=== PATIENT | male | born 1990 | race Caucasian/White ===

== ENCOUNTER 2022-06-20 15:48 | Inpatient (IN) | payer MEDICAID ==
[~2022-06-20] VITALS: Ht 170.2 cm; Wt 86.2 kg
--- NOTE | 2022-06-20 16:30 | NUR ---
BIB [facility] SACRAL WOUND EVAL SO HE CAN GET DIALYSIS C/O PAIN DURING DIALYSIS
--- NOTE | 2022-06-20 17:30 | NUR ---
calix catheter present
[2022-06-20 17:44] LABS: BASOPHILS % (AUTO) 0.3 % (0.0-2.0); EOSINOPHILS % (AUTO) 0.3 % (0.0-6.0); HEMATOCRIT 34 % (39-51); HEMOGLOBIN 10.4 g/dL (13.5-17.5); LYMPHOCYTES # (AUTO) 3.4 K/uL (0.8-4.8); LYMPHOCYTES % (AUTO) 26.8 % (20.0-44.0); MEAN CORPUSCULAR HGB CONC 30 g/dl (31.0-36.0); MEAN CORPUSCULAR VOLUME 88 fL (80-96); MONOCYTES # (AUTO) 0.3 K/uL (0.1-1.30); MONOCYTES % (AUTO) 2.5 % (2.0-12.0); NEUTROPHILS % (AUTO) 70.1 % (43.0-81.0); PLATELET COUNT (AUTO) 402 K/uL (150-450); RED BLOOD CELL COUNT(AUTO) 3.91 MIL/uL (4.5-6.0); WHITE BLOOD COUNT (AUTO) 12.9 K/uL (4.3-11.0)
--- NOTE | 2022-06-20 18:04 | NUR ---
admit - decubitus ulcer , med surg
--- NOTE | 2022-06-20 18:10 | NUR ---
covid swab taken sent to lab
--- NOTE | 2022-06-20 18:10 | NUR ---
urine sample obtained sent to lab
[2022-06-20 18:11] LABS: CALCIUM, SERUM 8.8 mg/dL (8.5-10.1); CARBON DIOXIDE 23 mmol/L (21-32); CHLORIDE 103 mmol/L (98-107); GLUCOSE 75 mg/dL (74-106); POTASSIUM 3.6 mmol/L (3.5-5.1); SODIUM SERUM 135 mmol/L (136-145); UREA NITROGEN, BLOOD 34 mg/dL (7-18)
--- NOTE | 2022-06-20 18:16 | NUR ---
called for midline nurse
[2022-06-20 18:17] LABS: ALANINE AMINOTRANSFERASE < 6 U/L (12-78); ALKALINE PHOSPHATASE 137 U/L (46-116); ASPARTATE AMINOTRANSFERASE 11 U/L (15-37); BILIRUBIN,DIRECT 0.1 mg/dL (0.0-0.2); BILIRUBIN,TOTAL 0.4 mg/dL (0.2-1.0); TOTAL PROTEIN, SERUM 7.5 g/dL (6.4-8.2)
[2022-06-20 18:28] LABS: ALBUMIN 1.4 g/dL (3.4-5.0)
[2022-06-20] MEDS ORDERED: PIPERACILLIN /TAZOBACTAM 3.375 G in IV D5W 50 ML IV ONE (18:30)
[2022-06-20] MEDS ORDERED: VANCOMYCIN 1 GM in IV D5W 250 ML IV ONE (18:30)
[2022-06-20] MEDS ORDERED: ASPI-1169 PO (18:39)
[2022-06-20] MEDS ORDERED: TRAM50TA2 PO (18:39)
[2022-06-20] MEDS ORDERED: INSU100V39 SQ (18:39)
[2022-06-20] MEDS ORDERED: POLY15DR40 EACHEYE (18:39)
[2022-06-20] MEDS ORDERED: CARV25TA2 PO (18:39)
[2022-06-20] MEDS ORDERED: CLON0.1T PO (18:39)
[2022-06-20] MEDS ORDERED: FERR325T23 PO (18:39)
[2022-06-20] MEDS ORDERED: EMTR1TAB17 PO (18:39)
[2022-06-20] MEDS ORDERED: MORP15TA10 PO (18:39)
[2022-06-20] MEDS ORDERED: DOLU50TA PO (18:39)
[2022-06-20] MEDS ORDERED: BISA10SU11 RC (18:39)
[2022-06-20] MEDS ORDERED: GABA-532 PO (18:39)
[2022-06-20] MEDS ORDERED: LORA-258 PO ×2 (18:39)
[2022-06-20] MEDS ORDERED: OXYC5TAB3 PO (18:39)
[2022-06-20] MEDS ORDERED: VENL150C58 PO (18:39)
[2022-06-20] MEDS ORDERED: FOLI0.8T2 PO (18:39)
[2022-06-20] MEDS ORDERED: SENN-261 PO (18:39)
[2022-06-20] MEDS ORDERED: CRAN425C6 PO (18:39)
[2022-06-20] MEDS ORDERED: ZOLP5TAB8 PO (18:39)
[2022-06-20] MEDS ORDERED: MIRT45TA83 PO (18:39)
[2022-06-20] MEDS ORDERED: COLL30OI TP (18:39)
[2022-06-20] MEDS ORDERED: NIFE90TA2 PO (18:39)
[2022-06-20] MEDS ORDERED: INSU100V7 SQ (18:39)
[2022-06-20] MEDS ORDERED: MAGN400O6 PO (18:39)
[2022-06-20] MEDS ORDERED: AMIN30LI2 PO (18:39)
[2022-06-20] MEDS ORDERED: CYCL5TAB PO (18:39)
[2022-06-20] MEDS ORDERED: OMEP20CA15 PO (18:39)
[2022-06-20] MEDS ORDERED: LOSA100T31 PO (18:39)
[2022-06-20] MEDS ORDERED: TEST200V3 IM (18:39)
[2022-06-20] MEDS ORDERED: NALO4SPR (18:39)
[2022-06-20] MEDS ORDERED: EPOE1VIA6 SQ (18:39)
[2022-06-20] MEDS ORDERED: DOCU250C14 PO (18:39)
[2022-06-20] MEDS ORDERED: HONE15GE TP (18:39)
[2022-06-20] MEDS ORDERED: BUPR-54 PO (18:39)
[2022-06-20] MEDS ORDERED: ACET-868 PO (18:39)
[2022-06-20] MEDS ORDERED: APIX5TAB PO (18:39)
[2022-06-20] MEDS ORDERED: POLY17PO4 PO (18:39)
[2022-06-20] MEDS ORDERED: ONDA4TAB5 PO (18:39)
[2022-06-20] MEDS ORDERED: HYDR50TA61 PO (18:39)
--- NOTE | 2022-06-20 19:10 | NUR ---
PANEL ON-CALL PAGED
[2022-06-20 19:12] LABS: BILIRUBIN,URINE 1+ (NEGATIVE); COLOR,URINE YELLOW (YELLOW); LEUKOCYTE ESTERASE ,URINE 3+ (NEGATIVE); NITRITE, URINE NEGATIVE (NEGATIVE); PH,URINE 8.5 (5.0-8.0); PROTEIN,URINE 3+ mg/dl (NEGATIVE); UGLUCOSE NEGATIVE (NEGATIVE); UROBILINOGEN,URINE 0.2 EU/dL (0.2)
[2022-06-20 19:39] LABS: BACTERIA,URINE Many /HPF (None Seen); SQUAMOUS EPITHELIAL CELL,UR Few /HPF (None Seen); WBC,URINE TOO NUMEROUS TO COUN /HPF (0-3)
[2022-06-20 19:41] LABS: TRIPLE PHOSPHATE CRYSTAL,UR Few /HPF (None Seen)
[2022-06-20] MEDS ORDERED: IV NS 0.9% 500 ML BAG IV ONE (20:00)
[2022-06-20] MEDS ORDERED: hydrALAZINE HCL IV 20 MG VIAL IV ONE (20:00)
[2022-06-20] MEDS ORDERED: PIPERACILLIN /TAZOBACTAM 3.375 G VIAL IV ONE (21:47)
[2022-06-20] MEDS ORDERED: VANCOMYCIN 1 GM VIAL ONE (22:05)
[2022-06-20] MEDS ORDERED: hydrALAZINE HCL IV 20 MG VIAL ONE (22:05)
--- NOTE | 2022-06-20 22:11 | NUR ---
PATIENT WITH MIDLINE ON RIGHT UPPER ARM G20
[2022-06-20] MEDS ORDERED: BISACODYL SUPP (10 MG) 10 MG/SUPP.RECT SUPP.RECT RC PRN (22:30)
[2022-06-20] MEDS ORDERED: Z GUARD REMEDY 4 OZ OINT TP PRN (22:30)
[2022-06-20] MEDS ORDERED: MAGNESIUM HYDROXIDE 30 ML UDC PO PRN (22:30)
[2022-06-20] MEDS ORDERED: ONDANSETRON HCL/PF 4 MG/2 ML VIAL IVP PRN (22:30)
[2022-06-20] MEDS ORDERED: ZOLPIDEM TARTRATE 5 MG TABLET PO PRN (22:30)
[2022-06-20] MEDS ORDERED: TRAMADOL HCL 50 MG TABLET PO PRN (22:30)
[2022-06-20] MEDS ORDERED: CLONIDINE HCL 0.1 MG TABLET PO PRN (22:30)
[2022-06-20] MEDS ORDERED: NALOXONE HCL 4 MG SPRAY NS PRN (22:30)
--- NOTE | 2022-06-20 23:48 | NUR ---
BP 210/154mmHg, Catapres PO given
[2022-06-21] MEDS ORDERED: hydrALAZINE HCL IV 20 MG VIAL ONE (00:22)
[2022-06-21] MEDS ORDERED: LORAZEPAM 0.5 MG TABLET ONE (00:24)
[2022-06-21] MEDS ORDERED: POLYVINYL ALCOHOL 15 ML BOTTLE EACHEYE PRN (00:30)
[2022-06-21] MEDS ORDERED: hydrALAZINE HCL IV 20 MG VIAL IV PRN (00:30)
--- NOTE | 2022-06-21 00:30 | NUR ---
BP 207/126mmHg, Apresoline 10mg iv push given
[2022-06-21] MEDS: LORAZEPAM 0.5 MG TABLET PO PRN (00:31)
--- NOTE | 2022-06-21 00:31 | NUR ---
JOEL VU MADE AWARE THAT BP IS ON THE HIGH SIDE EVEN MEDS GIVEN. HE WILL ORDER ADDITIONAL MEDICINE TO LOWER BP
--- NOTE | 2022-06-21 01:50 | NUR ---
REPORT GIVEN TO LIANG MCKEON
--- NOTE | 2022-06-21 02:05 | NUR ---
PATIENT TRANSFERRED TO ROOM VIA BED.
--- NOTE | 2022-06-21 02:10 | NUR ---
ADMISSION NOTES PT ARRIVED VIA GURNEY WITH EMT @ 0210 TRANSFERRED TO BED.AOx4, ABLE TO MAKE NEEDS KNOWN. ON RA AND TOLERATING WELL. NO SOB NOTED. NO S/SX OF RESPIRATORY DISTRESS NOTED. IV ACCESS IN REYES MIDLINE #18G. IV IS INTACT, PATENT, AND FLUSHING WELL. WOUND PICTURES TAKEN. WOUND CARE CONSULT ORDERED. BASIC WOUND CARE DONE. SAFETY PRECAUTIONS IN PLACE: BED IN LOWEST, LOCKED POSITION, SIDERAILS UPx2, AND BRAKES ON. TABLE AND CALL LIGHT WITHIN REACH. ALL NEEDS MET AT THIS TIME.
--- NOTE | 2022-06-21 06:50 | NUR ---
RN CLOSING NOTES PT IN BED, AWAKE. AOx4, ABLE TO MAKE NEEDS KNOWN. ON RA AND TOLERATING WELL. NO SOB NOTED. NO S/SX OF RESPIRATORY DISTRESS NOTED. IV ACCESS IN REYES MIDLINE #18G. IV IS INTACT, PATENT, AND FLUSHING WELL. WOUND PICTURES TAKEN. WOUND CARE CONSULT ORDERED. BASIC WOUND CARE DONE. ALL ORDERS CARRIED OUT. ALL NEEDS MET. PT KEPT CLEAN AND DRY. SAFETY PRECAUTIONS IN PLACE: BED IN LOWEST, LOCKED POSITION, SIDERAILS UPx2, AND BRAKES ON. TABLE AND CALL LIGHT WITHIN REACH. WILL ENDORSE TO ONCOMING SHIFT FOR BRYN.
--- NOTE | 2022-06-21 07:00 | NUR ---
MS RN OPENING NOTES RECEIVED PATIENT SLEEPING IN BED, A/Ox4, ABLE TO VERBALIZE NEEDS. BLIND, SAFETY MEASURES IN PLACE. ON ROOM AIR NO S/S OF SOB OR RESPIRATORY DISTRESS. PATIENT SHOWS NO S/S OF DISCOMFORT OR PAIN. IV ACCES REYES MIDLINE #18 S/L. INTACT AND PATENT. PATIENT HAS RCW HD CATHETER, DRESSING IN PLACE. PATIENT HAD FC DRAINING CLOUDY URINE AT THIS TIME. SKIN ISSUES: SACRAL WOUND AND BILATERAL HEEL DTI. SAFETY MEASURES IN PLACE: BED LOCKED AND IN LOWEST POSITION, HOB ELEVATED, SIDE RAILS UP x3, BED ALARM ON, CALL LIGHT WITHIN REACH. WILL CONTINUE TO MONITOR.
[2022-06-21 07:14] LABS: BASOPHILS % (AUTO) 0.1 % (0.0-2.0); EOSINOPHILS % (AUTO) 0.2 % (0.0-6.0); HEMATOCRIT 29 % (39-51); HEMOGLOBIN 8.9 g/dL (13.5-17.5); LYMPHOCYTES # (AUTO) 2.6 K/uL (0.8-4.8); LYMPHOCYTES % (AUTO) 16.2 % (20.0-44.0); MEAN CORPUSCULAR HGB CONC 31 g/dl (31.0-36.0); MEAN CORPUSCULAR VOLUME 86 fL (80-96); MONOCYTES # (AUTO) 0.5 K/uL (0.1-1.30); MONOCYTES % (AUTO) 3.4 % (2.0-12.0); NEUTROPHILS # (AUTO) 12.6 K/uL (1.8-8.9); NEUTROPHILS % (AUTO) 80.1 % (43.0-81.0); PLATELET COUNT (AUTO) 298 K/uL (150-450); RED BLOOD CELL COUNT(AUTO) 3.37 MIL/uL (4.5-6.0); WHITE BLOOD COUNT (AUTO) 15.8 K/uL (4.3-11.0)
[2022-06-21] MEDS ORDERED: OMEPRAZOLE 20 MG CAPSULE.DR PO SCH (07:30)
[2022-06-21 08:00] VITALS: BP 160/100
[2022-06-21] MEDS ORDERED: NALOXONE HCL 4 MG SPRAY NS PRN (08:00)
[2022-06-21] MEDS ORDERED: PIPERACILLIN /TAZOBACTAM 2.25 G in IV D5W 50 ML IV SCH (08:00)
[2022-06-21] MEDS ORDERED: VANCOMYCIN 500 MG in IV D5W 100 ML IV PRN (08:00)
[2022-06-21 08:07] LABS: CALCIUM, SERUM 7.9 mg/dL (8.5-10.1); CREATININE 4.7 mg/dL (0.6-1.3); PHOSPHORUS 4.2 mg/dL (2.5-4.9); POTASSIUM 3.6 mmol/L (3.5-5.1)
[2022-06-21] MEDS: LOSARTAN POTASSIUM 50 MG TABLET PO SCH (08:29)
[2022-06-21] MEDS: VIT B CMPLX 3/FA/VIT C/BIOTIN 1 TAB TABLET PO SCH (08:30)
[2022-06-21] MEDS: ASPIRIN 81 MG TAB.CHEW PO SCH (08:30)
[2022-06-21] MEDS: NIFEdipine XL (30MG) 30 MG TAB PO SCH (08:30)
[2022-06-21] MEDS: BUPROPION XL 150 MG TAB.ER.24 PO SCH (08:30)
[2022-06-21] MEDS: FERROUS SULFATE (325 MG) 325 MG/TAB TABLET PO SCH ×3 (08:30→16:49)
[2022-06-21] MEDS: PANTOPRAZOLE 40 MG TABLET.DR PO SCH (08:30)
[2022-06-21] MEDS: DOCUSATE SODIUM 250 MG CAPSULE PO SCH (08:30)
[2022-06-21] MEDS: SENNOSIDES 8.6 MG TABLET PO SCH ×3 (08:30→16:55)
[2022-06-21] MEDS: CARVEDILOL 12.5 MG TABLET PO SCH ×3 (08:30→21:09)
[2022-06-21] MEDS: APIXABAN 5 MG TABLET PO SCH ×2 (08:32→16:51)
[2022-06-21] MEDS: POLYETHYLENE GLYCOL 3350 17 GM POWD.PACK PO SCH (08:40)
--- NOTE | 2022-06-21 08:47 | NUR ---
WOUND CARE CONSULT: PT REFUSING SKIN ASSESSMENT AT THIS TIME. 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 DR JOSELITO WALSH AND DR RUSSELL CALLED FOR SURGICAL AND DPM CONSULTS. RECOMMENDATIONS MADE FOR SKIN PROTECTION AND SACRAL WOUND CARE. DISCUSSED WITH NURSING STAFF. PT IS ON [facility] LOW AIRLOSS BED. MD IN AGREEMENT WITH PLAN OF CARE.
[2022-06-21] MEDS ORDERED: CRANBERRY EXT/C/L. SPOROGENES 405 MG/TAB TABLET PO SCH ×2 (09:00)
[2022-06-21] MEDS: PIPERACILLIN /TAZOBACTAM 2.25 G in IV D5W 50 ML IV SCH ×3 (10:16→20:48)
[2022-06-21] MEDS: VENLAFAXINE XR 150 MG CAP.SR.24H PO SCH (10:21)
[2022-06-21] MEDS: DAKINS QUARTER STRENGTH (0.125%) 480 ML BOTTLE TOP SCH (11:34)
--- NOTE | 2022-06-21 12:00 | NUR ---
SS note: TAYLOR was notified that pt. requires medication from [facility] [[id number] [id number]; TEL: [phone]] to be brought to pt. as our pharmacy bejarano not carry that medication. Per facility stated they could not bring it to [facility]. TAYLOR called the pt.'s person to notify, Wes [phone] who stated they are the pt.'s godfather and all of the pt.'s family and friends reside in [facility] so no one is able to assist with bringing pt.'s medication to [facility] from facility. TAYLOR met with pt. who also stated he has no friends in [place] to assist. TAYLOR called [facility] pharmacy and they sent a dermatological surgeon to [facility] [[id number] [id number]; TEL: [phone]]. TAYLOR spoke to Niki Archuleta at [facility] [[id number] [id number]; TEL: [phone]] who stated thy would provide dermatological surgeon with pt.'s medication. SW will be available as needed. TAYLOR notified CRN from .
[2022-06-21] MEDS ORDERED: NEPRO VAN 237 ML CAN PO PRN (15:00)
[2022-06-21] MEDS: TENOFOV ALAFENAM PO SCH (16:51)
[2022-06-21] MEDS: DOLUTEGRAVIR SODIUM 50 MG PO SCH (16:51)
[2022-06-21] MEDS: EMTRICITABINE PO SCH (16:51)
--- NOTE | 2022-06-21 18:46 | NUR ---
MS RN CLOSING NOTES PATIENT SLEEPING IN BED, A/Ox4, ABLE TO VERBALIZE NEEDS. BLIND, SAFETY MEASURES IN PLACE. STABLE ON ROOM AIR NO S/S OF SOB OR RESPIRATORY DISTRESS. PATIENT SHOWS NO S/S OF DISCOMFORT OR PAIN. IV ACCES REYES MIDLINE #18 S/L. INTACT AND PATENT. PATIENT HAS RCW HD CATHETER, DRESSING IN PLACE. PATIENT HAD FC DRAINING CLOUDY URINE AT THIS TIME. SKIN ISSUES: SACRAL WOUND AND BILATERAL HEEL DTI. ALL PRESCRIBED MEDICATION ADMINISTERED. SAFETY MEASURES MAINTAINED: BED LOCKED AND IN LOWEST POSITION, HOB ELEVATED, SIDE RAILS UP x3, BED ALARM ON, CALL LIGHT WITHIN REACH. WILL ENDORSE TO NEXT SHIFT ANY BRYN.
--- NOTE | 2022-06-21 19:15 | NUR ---
MS RN NOTES RECEIVED ON BED SLEEPING,BREATHING REGULAR,NOT IN ANY FORM OF DISTRESS.LEGALLY BLIND,SHINE CATH IN PLACE,NO OUTPUT AT THE MOMENT.WITH RIGHT CHEST WALL CATHETER FOR HD ACCESS.RIGHT UPPER ARM MIDLINE FOR MEDS.SACRAL WOUND WITH DRESSING INTACT AND DRY.CALL LIGHT IN REACH,NEEDS ANTICIPATED.
[2022-06-21 20:00] VITALS: BP 107/59
[2022-06-21] MEDS: GABAPENTIN 300 MG CAPSULE PO SCH ×2 (21:09→21:18)
[2022-06-21] MEDS: MIRTAZAPINE 45 MG TABLET PO SCH ×2 (21:12→21:18)
[2022-06-21] MEDS: INSULIN GLARGINE, 100 UNIT/ML CARTRIDGE SQ SCH (21:29)
--- NOTE | 2022-06-21 21:30 | NUR ---
MS RN NOTES PATIENT REFUSED NIGHT MEDICATIONS,COREG,NEURONTIN,REMERON,WASTED. BLOOD SUGAR CHECK REFUSED WELL,LANTUS 5 UNITS SCHEDULED NOT GIVEN,REFUSED.
--- NOTE | 2022-06-22 02:00 | NUR ---
MS RN NOTES OFFERED TO BE REPOSITIONED BUT REFUSED.
[2022-06-22] MEDS: PIPERACILLIN /TAZOBACTAM 2.25 G in IV D5W 50 ML IV SCH ×3 (04:44→22:09)
--- NOTE | 2022-06-22 05:00 | NUR ---
MS RN NOTES AWAKE,OFFERED MORNING CARE,DRESSING CHANGE TO WOUND BUT REFUSED.EXPLAINED RISK AND BENEFITS BUT STILLL REFUSED.
[2022-06-22] MEDS: ACETAMINOPHEN 325 MG TABLET PO PRN ×2 (05:04→15:04)
--- NOTE | 2022-06-22 05:09 | NUR ---
MS RN NOTES C/O MILD PAIN ON SACRAL AREA,TYLENOL 650MG PO GIVEN PER PATIENT REQUEST.
[2022-06-22 05:50] LABS: BASOPHILS % (AUTO) 0.1 % (0.0-2.0); EOSINOPHILS % (AUTO) 0.4 % (0.0-6.0); HEMATOCRIT 25 % (39-51); HEMOGLOBIN 7.6 g/dL (13.5-17.5); LYMPHOCYTES # (AUTO) 2.6 K/uL (0.8-4.8); LYMPHOCYTES % (AUTO) 16.2 % (20.0-44.0); MEAN CORPUSCULAR HGB CONC 31 g/dl (31.0-36.0); MEAN CORPUSCULAR VOLUME 86 fL (80-96); MONOCYTES # (AUTO) 0.6 K/uL (0.1-1.30); MONOCYTES % (AUTO) 3.7 % (2.0-12.0); NEUTROPHILS # (AUTO) 12.7 K/uL (1.8-8.9); NEUTROPHILS % (AUTO) 79.6 % (43.0-81.0); PLATELET COUNT (AUTO) 260 K/uL (150-450); RED BLOOD CELL COUNT(AUTO) 2.86 MIL/uL (4.5-6.0)
--- NOTE | 2022-06-22 06:27 | NUR ---
MS RN NOTES OFFERED SEVERAL TIMES MORNING CARE,STILL REFUSED,PAIN IMPROVED WITH TYLENOL.REFUSED ALL PO MEDS LAST NIGHT.IN NO ACUTE DISTRESS.WILL ENDORSE TO DAY NURSE FOR BRYN.
[2022-06-22 06:31] LABS: CALCIUM, SERUM 7.9 mg/dL (8.5-10.1); CREATININE 5.2 mg/dL (0.6-1.3); PHOSPHORUS 4.2 mg/dL (2.5-4.9); POTASSIUM 3.4 mmol/L (3.5-5.1)
[2022-06-22] MEDS ORDERED: EPOETIN ALFA-EPBX 10,000 UNIT/ML VIAL SQ SCH ×2 (06:57→15:00)
[2022-06-22 07:00] VITALS: BP 129/76
[2022-06-22] MEDS: PANTOPRAZOLE 40 MG TABLET.DR PO SCH ×2 (07:30→09:49)
--- NOTE | 2022-06-22 07:30 | NUR ---
MS RN OPENING NOTES RECEIVED PATIENT ON BED RESTING AND A/O X4. ON ROOM AIR TOLERATING WELL. NO SOB NOTED. NOT IN DISTRESS. WITH NO COMPLAINTS OF PAIN AT THIS TIME. WITH IV ACCESS AT THE RIGHT UPPER ARM MIDLINE SALINE LOCKED, PATENT AND INTACT. WITH HD CATHETER AT THE RIGHT CHEST WALL WITH CLEAN AND DRY DRESSING. WITH SHINE CATHETER IN PLACED WITH AT LEAST 10ML OF TEA COLORED URINE. SAFETY MEASURES IN PLACED. CALL LIGHT WITHIN REACH. BED ON LOWEST LOCKED POSITION, SIDE RAILS UP X2. WILL CONTINUE TO MONITOR.
[2022-06-22] MEDS: VIT B CMPLX 3/FA/VIT C/BIOTIN 1 TAB TABLET PO SCH ×2 (09:00→09:49)
[2022-06-22] MEDS: APIXABAN 5 MG TABLET PO SCH ×3 (09:00→17:00)
[2022-06-22] MEDS: EMTRICITABINE PO SCH ×2 (09:00→09:45)
[2022-06-22] MEDS: POLYETHYLENE GLYCOL 3350 17 GM POWD.PACK PO SCH (09:00)
[2022-06-22] MEDS: LOSARTAN POTASSIUM 50 MG TABLET PO SCH (09:00)
[2022-06-22] MEDS: BUPROPION XL 150 MG TAB.ER.24 PO SCH ×2 (09:00→09:48)
[2022-06-22] MEDS: TENOFOV ALAFENAM PO SCH ×2 (09:00→09:45)
[2022-06-22] MEDS: ASPIRIN 81 MG TAB.CHEW PO SCH ×2 (09:00→09:46)
[2022-06-22] MEDS: DOLUTEGRAVIR SODIUM 50 MG PO SCH ×2 (09:00→09:45)
[2022-06-22] MEDS: NIFEdipine XL (30MG) 30 MG TAB PO SCH (09:00)
[2022-06-22] MEDS: FERROUS SULFATE (325 MG) 325 MG/TAB TABLET PO SCH ×4 (09:00→17:00)
[2022-06-22] MEDS: CARVEDILOL 12.5 MG TABLET PO SCH ×2 (09:00→21:00)
[2022-06-22] MEDS: SENNOSIDES 8.6 MG TABLET PO SCH ×4 (09:00→17:00)
[2022-06-22] MEDS: DOCUSATE SODIUM 250 MG CAPSULE PO SCH (09:00)
[2022-06-22] MEDS: VENLAFAXINE XR 150 MG CAP.SR.24H PO SCH ×2 (09:00→09:45)
--- NOTE | 2022-06-22 09:20 | NUR ---
RN NOTES PATIENT REFUSED TO EAT AND TO TAKE ALL HIS PO MEDICATIONS.
[2022-06-22] MEDS: POTASSIUM CHLORIDE 20 MEQ TAB.PRT.SR PO ONE ×2 (09:51→10:26)
[2022-06-22] MEDS: DAKINS QUARTER STRENGTH (0.125%) 480 ML BOTTLE TOP SCH (09:52)
--- NOTE | 2022-06-22 10:00 | NUR ---
RN NOTE PATIENT REFUSED FOR CT ABDOMEN AND PELVIS WITH OR WITHOUT CONTRAST.
[2022-06-22] MEDS: LORAZEPAM 0.5 MG TABLET PO PRN ×2 (14:20→15:03)
[2022-06-22] MEDS: EPOETIN ALFA-EPBX 10,000 UNIT/ML VIAL SQ SCH (15:43)
--- NOTE | 2022-06-22 17:00 | NUR ---
RN NOTE PT REFUSED TO TAKE AGAIN HIS PO MEDS.
--- NOTE | 2022-06-22 17:41 | NUR ---
RN NOTE PT REFUSED TO BE CLEANED AND REFUSED CHANGING OF LINENS WELL STATING "I'M FINE. LEAVE ME ALONE. I HAVEN'T GONE YET."
--- NOTE | 2022-06-22 18:38 | NUR ---
MS RN CLOSING NOTES PATIENT ON BED RESTING AND A/O X4. NON-COMPLIANT WITH PO MEDS. ON ROOM AIR TOLERATING WELL. NO SOB NOTED. NOT IN DISTRESS. WITH NO COMPLAINTS OF PAIN AT THIS TIME. WITH IV ACCESS AT THE RIGHT UPPER ARM MIDLINE SALINE LOCKED, PATENT AND INTACT. WITH HD CATHETER AT THE RIGHT CHEST WALL WITH CLEAN AND DRY DRESSING. S/P HEMODIALYSIS WITH 2L OF FLUID REMOVED. WITH SHINE CATHETER IN PLACED WITH AT LEAST 20ML OF TEA COLORED URINE. SAFETY MEASURES IN PLACED. CALL LIGHT WITHIN REACH. BED ON LOWEST LOCKED POSITION, SIDE RAILS UP X2. WILL ENDORSE TO NEXT SHIFT FOR BRYN.
--- NOTE | 2022-06-22 19:30 | NUR ---
MS RN NOTES RECEIVED LAYING ON BED,A/O X4,LEGALLY BLIND,BREATHING NON LABORED,IV ABX INFUSING WELL ON RIGHT UPPER ARM MIDLINE.WITH SHINE CATH IN PLACE ,NO OUTPUT AT THE MOMENT,WITH HD TREATMENT TODAY,2 LITERS OUT.SACRAL WOUND DRESSING INTACT AND DRY.WITH BLE DTI. WITH RIGHT CHEST WALL CATH FOR HD TREATMENT,REYES MIDLINE FOR MEDS.CALL LIGHT IN REACH,NEEDS ANTICIPATED.
--- NOTE | 2022-06-22 20:00 | NUR ---
MS RN NOTES REFUSED VITAL SIGNS THIS TIME.
[2022-06-22] MEDS: MIRTAZAPINE 45 MG TABLET PO SCH (22:00)
[2022-06-22] MEDS: GABAPENTIN 300 MG CAPSULE PO SCH (22:00)
[2022-06-22] MEDS: INSULIN GLARGINE, 100 UNIT/ML CARTRIDGE SQ SCH (22:00)
--- NOTE | 2022-06-23 04:00 | NUR ---
MS RN NOTES ABLE TO DO MORNING CARE THIS TIME.FOUL ODOR INSIDE HIS ROOM.WITH HUGE BOWEL MOVEMENT NOTED AND PATIENT DOESNT WANT TO BE CLEAN.EXPLAINED RISK AND BENEFITS OF HAVING CLEAN AND HE GIVE IN.WOUND CARE RENDERED WITH DAKINS SOLUTION ON SACRAL AREA.BILATERAL HEEL COVERED WITH MEPILEX,ELEVATED ON PILLOWS.SPECIALTY MATTRESS APPLIED.REPOSITIONED.
[2022-06-23] MEDS: PIPERACILLIN /TAZOBACTAM 2.25 G in IV D5W 50 ML IV SCH ×3 (05:06→21:10)
--- NOTE | 2022-06-23 06:13 | NUR ---
MS RN NOTES ON BED CALM.SUCCESSFUL MORNING CARE DONE.FOR HD TODAY WITH ORDER.REPOSITION PER PROTOCOL.BILATERAL HEEL OFFLOAD TO BED.IN NO ACUTE DISTRESS.
[2022-06-23 07:00] VITALS: BP 178/100
--- NOTE | 2022-06-23 07:13 | NUR ---
MS RN NOTES REFUSED BLOOD DRAW THIS MORNING.
[2022-06-23] MEDS: PANTOPRAZOLE 40 MG TABLET.DR PO SCH (07:30)
--- NOTE | 2022-06-23 07:30 | NUR ---
MS RN OPENING NOTES RECEIVED PATIENT ON BED RESTING AND A/O X4. ON ROOM AIR TOLERATING WELL. NO SOB NOTED. NOT IN DISTRESS. WITH NO COMPLAINTS OF PAIN AT THIS TIME. WITH IV ACCESS AT THE RIGHT UPPER ARM MIDLINE SALINE LOCKED, PATENT AND INTACT. WITH HD CATHETER AT THE RIGHT CHEST WALL WITH CLEAN AND DRY DRESSING. WITH SHINE CATHETER IN PLACED. SAFETY MEASURES IN PLACED. CALL LIGHT WITHIN REACH. BED ON LOWEST LOCKED POSITION, SIDE RAILS UP X2. WILL CONTINUE TO MONITOR.
[2022-06-23] MEDS: TENOFOV ALAFENAM PO SCH (09:00)
[2022-06-23] MEDS: CARVEDILOL 12.5 MG TABLET PO SCH ×2 (09:00→22:10)
[2022-06-23] MEDS: VIT B CMPLX 3/FA/VIT C/BIOTIN 1 TAB TABLET PO SCH (09:00)
[2022-06-23] MEDS: POLYETHYLENE GLYCOL 3350 17 GM POWD.PACK PO SCH (09:00)
[2022-06-23] MEDS: FERROUS SULFATE (325 MG) 325 MG/TAB TABLET PO SCH ×3 (09:00→17:00)
[2022-06-23] MEDS: VENLAFAXINE XR 150 MG CAP.SR.24H PO SCH (09:00)
[2022-06-23] MEDS: DOCUSATE SODIUM 250 MG CAPSULE PO SCH (09:00)
[2022-06-23] MEDS: BUPROPION XL 150 MG TAB.ER.24 PO SCH (09:00)
[2022-06-23] MEDS: DOLUTEGRAVIR SODIUM 50 MG PO SCH (09:00)
[2022-06-23] MEDS: NIFEdipine XL (30MG) 30 MG TAB PO SCH (09:00)
[2022-06-23] MEDS: LOSARTAN POTASSIUM 50 MG TABLET PO SCH (09:00)
[2022-06-23] MEDS: SENNOSIDES 8.6 MG TABLET PO SCH ×3 (09:00→17:00)
[2022-06-23] MEDS: EMTRICITABINE PO SCH (09:00)
[2022-06-23] MEDS: ASPIRIN 81 MG TAB.CHEW PO SCH (09:00)
[2022-06-23] MEDS: APIXABAN 5 MG TABLET PO SCH ×2 (09:00→17:00)
[2022-06-23] MEDS: DAKINS QUARTER STRENGTH (0.125%) 480 ML BOTTLE TOP SCH (09:55)
[2022-06-23 14:23] LABS: BASOPHILS % (AUTO) 0.3 % (0.0-2.0); EOSINOPHILS % (AUTO) 0.3 % (0.0-6.0); HEMATOCRIT 29 % (39-51); HEMOGLOBIN 8.7 g/dL (13.5-17.5); LYMPHOCYTES # (AUTO) 2.6 K/uL (0.8-4.8); LYMPHOCYTES % (AUTO) 19.5 % (20.0-44.0); MEAN CORPUSCULAR HGB CONC 30 g/dl (31.0-36.0); MEAN CORPUSCULAR VOLUME 86 fL (80-96); MONOCYTES # (AUTO) 0.5 K/uL (0.1-1.30); MONOCYTES % (AUTO) 3.9 % (2.0-12.0); NEUTROPHILS # (AUTO) 10.3 K/uL (1.8-8.9); PLATELET COUNT (AUTO) 266 K/uL (150-450); RED BLOOD CELL COUNT(AUTO) 3.34 MIL/uL (4.5-6.0); WHITE BLOOD COUNT (AUTO) 13.6 K/uL (4.3-11.0)
[2022-06-23 15:05] LABS: CALCIUM, SERUM 7.4 mg/dL (8.5-10.1); CREATININE 2.5 mg/dL (0.6-1.3); MAGNESIUM 1.7 mg/dL (1.8-2.4); PHOSPHORUS 2.4 mg/dL (2.5-4.9); POTASSIUM 3.1 mmol/L (3.5-5.1)
[2022-06-23] MEDS ORDERED: VANCOMYCIN 1 GM in IV D5W 250ml IV ONE (18:00)
--- NOTE | 2022-06-23 19:00 | NUR ---
RN NOTE PATIENT REFUSED FOR CHANGE OF LINEN AND TO BE CLEANED UP STATING HE IS STILL GOING AND WILL WAIT FOR THE NEXT SHIFT.
--- NOTE | 2022-06-23 19:28 | NUR ---
MS RN CLOSING NOTES PATIENT ON BED RESTING AND A/O X4. NON-COMPLIANT WITH PO MEDS. ON ROOM AIR TOLERATING WELL. NO SOB NOTED. NOT IN DISTRESS. WITH NO COMPLAINTS OF PAIN AT THIS TIME. WITH IV ACCESS AT THE RIGHT UPPER ARM MIDLINE SALINE LOCKED, PATENT AND INTACT. WITH HD CATHETER AT THE RIGHT CHEST WALL WITH CLEAN AND DRY DRESSING. S/P HEMODIALYSIS WITH 2L OF FLUID REMOVED. WITH SHINE CATHETER IN PLACED WITH AN OUTPUT OF 100ML TEA COLORED URINE. SAFETY MEASURES IN PLACED. CALL LIGHT WITHIN REACH. BED ON LOWEST LOCKED POSITION, SIDE RAILS UP X2. WILL ENDORSE TO NEXT SHIFT FOR BRYN.
[2022-06-23] MEDS ORDERED: Sodium Phosphate 15 MMOL in IV NS 0.9% 245 ML IV SCH (20:00)
--- NOTE | 2022-06-23 20:00 | NUR ---
RN NOTES - BP HIGH. 188/114mmhg. BP VERIFIED AND RE-TAKEN, STILL THE SAME READING. GIVEN HYDRALAZINE 20MG IV PRN, ORDERED. WILL CONTINUE TO MONITOR.
[2022-06-23] MEDS: hydrALAZINE HCL IV 20 MG VIAL IV PRN (20:21)
[2022-06-23 20:24] VITALS: BP 188/114
--- NOTE | 2022-06-23 20:57 | NUR ---
MS RN OPENING NOTES RECEIVED PATIENT LYING IN BED. A/O X4. ON ROOM AIR TOLERATING WELL. NO SOB NOTED. NOT IN DISTRESS. WITH NO COMPLAINTS OF PAIN AT THIS TIME. WITH IV ACCESS AT THE RIGHT UPPER ARM MIDLINE SALINE LOCKED, PATENT AND INTACT. WITH HD CATHETER AT THE RIGHT CHEST WALL WITH CLEAN AND DRY DRESSING. WITH SHINE CATHETER IN PLACED. SAFETY MEASURES IN PLACED. CALL LIGHT WITHIN REACH. BED ON LOWEST LOCKED POSITION, SIDE RAILS UP X2. WILL CONTINUE TO MONITOR.
--- NOTE | 2022-06-23 21:18 | NUR ---
RN NOTES - PATIENT IS NAUSEOUS. GIVEN EMESIS BAG. OFFERED ICE CHIPS. REFUSED TO BE GIVEN PRN MED FOR NAUSEA AND VOMITING. DUE ORAL MEDS HOLD FOR NOW. WILL ADMIN AFTER 1 HOUR. KEPT COMFORTABLE. WILL CONTINUE TO MONITOR.
[2022-06-23] MEDS ORDERED: POTASSIUM CHLORIDE 20 MEQ TAB.PRT.SR PO ONE (21:30)
[2022-06-23] MEDS: INSULIN GLARGINE, 100 UNIT/ML CARTRIDGE SQ SCH (22:00)
--- NOTE | 2022-06-23 22:00 | NUR ---
RN NOTES: PATIENT'S BP DOWN TO 165/102. KEPT COMFORTABLE. WILL CONTINUE TO MONITOR.
[2022-06-23] MEDS: GABAPENTIN 300 MG CAPSULE PO SCH (22:10)
[2022-06-23] MEDS: MIRTAZAPINE 45 MG TABLET PO SCH (22:10)
--- NOTE | 2022-06-23 22:20 | NUR ---
RN NOTES - PATIENT REFUSED BLOOD SUGAR CHECK AND INSULIN ADMIN. EXPLAINED THE RISK OF NON-ADMIN X2. WILL CONTINUE TO MONITOR.
[2022-06-24] MEDS: hydrALAZINE HCL IV 20 MG VIAL IV PRN (05:04)
--- NOTE | 2022-06-24 05:08 | NUR ---
RN NOTES - BP HIGH. BP: 177/105. GIVEN HYDRALAZINE 20MG IV. WILL CONTINUE TO MONITOR.
[2022-06-24] MEDS: PIPERACILLIN /TAZOBACTAM 2.25 G in IV D5W 50 ML IV SCH ×3 (05:20→20:39)
--- NOTE | 2022-06-24 06:10 | NUR ---
RN NOTES - PATIENT'S BP 145/88. MORNING CARE DONE. AGREED TO BE TURNED AND REPOSITIONED AT THIS TIME. KEPT COMFORTABLE.
--- NOTE | 2022-06-24 06:56 | NUR ---
MS RN CLOSING NOTES PATIENT IS LYING ASLEEP IN BED. A/O X4. ON ROOM AIR TOLERATING WELL. NO SOB NOTED. NOT IN DISTRESS. WITH NO COMPLAINTS OF PAIN AT THIS TIME. WITH IV ACCESS AT THE RIGHT UPPER ARM MIDLINE SALINE LOCKED, PATENT AND INTACT. WITH HD CATHETER AT THE RIGHT CHEST WALL WITH CLEAN AND DRY DRESSING. WITH SHINE CATHETER IN PLACED DRAINING 60ML. SAFETY MEASURES IN PLACED. CALL LIGHT WITHIN REACH. BED ON LOWEST LOCKED POSITION, SIDE RAILS UP X2. WILL CONTINUE TO MONITOR.
[2022-06-24] MEDS: PANTOPRAZOLE 40 MG TABLET.DR PO SCH (07:30)
[2022-06-24 07:41] LABS: EOSINOPHILS % (AUTO) 0.3 % (0.0-6.0); HEMATOCRIT 26 % (39-51); HEMOGLOBIN 7.8 g/dL (13.5-17.5); LYMPHOCYTES # (AUTO) 2.7 K/uL (0.8-4.8); LYMPHOCYTES % (AUTO) 21.8 % (20.0-44.0); MEAN CORPUSCULAR HGB CONC 31 g/dl (31.0-36.0); MEAN CORPUSCULAR VOLUME 87 fL (80-96); MONOCYTES # (AUTO) 0.6 K/uL (0.1-1.30); NEUTROPHILS # (AUTO) 9.2 K/uL (1.8-8.9); NEUTROPHILS % (AUTO) 72.9 % (43.0-81.0); PLATELET COUNT (AUTO) 259 K/uL (150-450); RED BLOOD CELL COUNT(AUTO) 2.97 MIL/uL (4.5-6.0); WHITE BLOOD COUNT (AUTO) 12.6 K/uL (4.3-11.0)
[2022-06-24 08:00] VITALS: BP 135/85
[2022-06-24 08:06] LABS: CALCIUM, SERUM 7.3 mg/dL (8.5-10.1); CREATININE 2.9 mg/dL (0.6-1.3); MAGNESIUM 1.7 mg/dL (1.8-2.4); PHOSPHORUS 3.4 mg/dL (2.5-4.9); POTASSIUM 3.1 mmol/L (3.5-5.1)
--- NOTE | 2022-06-24 08:16 | NUR ---
RN OPENING NOTE RECEIVED PATIENT IN BED, AO X 4. ABLE TO RESPONDS PHYSICAL STIMULI. RESPIRATORY EVEN AND UNLABORED ROOM AIR. IN NO ACUTE DISTRESS OBSERVED. SKIN IS WARM TO TOUCH, KEEP CLEAN/DRY. KEPT ELEVATED HOB FOR ASPIRATION PRECAUTION/ENSURE AIRWAY, AND LOWEST BED POSITIONED. BED ALARM IS ON AT ALL THE TIME FOR SAFETY. CALL LIGHT WITHIN REACH, WILL CONTINUE TO MONITOR.
[2022-06-24] MEDS: SENNOSIDES 8.6 MG TABLET PO SCH ×3 (09:00→17:00)
[2022-06-24] MEDS: VIT B CMPLX 3/FA/VIT C/BIOTIN 1 TAB TABLET PO SCH (09:00)
[2022-06-24] MEDS: POLYETHYLENE GLYCOL 3350 17 GM POWD.PACK PO SCH (09:00)
[2022-06-24] MEDS: EMTRICITABINE PO SCH (09:00)
[2022-06-24] MEDS: BUPROPION XL 150 MG TAB.ER.24 PO SCH (09:00)
[2022-06-24] MEDS: DOCUSATE SODIUM 250 MG CAPSULE PO SCH (09:00)
[2022-06-24] MEDS: CARVEDILOL 12.5 MG TABLET PO SCH ×2 (09:00→20:40)
[2022-06-24] MEDS: APIXABAN 5 MG TABLET PO SCH ×2 (09:00→17:00)
[2022-06-24] MEDS: LOSARTAN POTASSIUM 50 MG TABLET PO SCH (09:00)
[2022-06-24] MEDS: TENOFOV ALAFENAM PO SCH (09:00)
[2022-06-24] MEDS: DOLUTEGRAVIR SODIUM 50 MG PO SCH (09:00)
[2022-06-24] MEDS: NIFEdipine XL (30MG) 30 MG TAB PO SCH (09:00)
[2022-06-24] MEDS: VENLAFAXINE XR 150 MG CAP.SR.24H PO SCH (09:00)
[2022-06-24] MEDS: FERROUS SULFATE (325 MG) 325 MG/TAB TABLET PO SCH ×3 (09:00→17:00)
[2022-06-24] MEDS: ASPIRIN 81 MG TAB.CHEW PO SCH (09:00)
--- NOTE | 2022-06-24 10:36 | NUR ---
PATIENT'S POTASSIUM AND MG LEVELS ARE LOW, MD MADE AWARE, HOWEVER, NO NEW ORDER DUE TO PATIENT IS HD.
--- NOTE | 2022-06-24 10:48 | NUR ---
PATIENT WAS ASKING EMESIS MEDICATION BUT REFUSED ZOFRAN, AND ALL MORNING MEDICATIONS EXCEPT WOUND MEDICATIONS. Addendum: 06/24/22 at 1115 by GUILLE RAMOS RN ERROR
--- NOTE | 2022-06-24 10:48 | NUR ---
PATIENT REFUSED ALL MORNING MEDICATIONS EXCEPT WOUND MEDICATIONS. ALSO ASKING EMESIS/ZOFRAN BUT PATIENT CHANGED MINE AND REFUSED ZOFRAN. MADE AWARE REGARDING ABOVE ISSUES.
[2022-06-24] MEDS: DAKINS QUARTER STRENGTH (0.125%) 480 ML BOTTLE TOP SCH (10:58)
[2022-06-24 16:00] VITALS: BP 187/112
[2022-06-24] MEDS: EPOETIN ALFA-EPBX 10,000 UNIT/ML VIAL SQ SCH (16:03)
--- NOTE | 2022-06-24 18:54 | NUR ---
RN CLOSING NOTE PATIENT RESTING IN BED. IN NO ACUTE DISTRESS OBSERVED. RESPIRATORY EVEN AND UNLABORED ON ROOM AIR. REFUSED WOUND CARE. SKIN IS WARM TO TOUCH KEEP CLEAN/DRY. KEPT ELEVATED HOB FOR ENSURE AIRWAY/ASPIRATION PRECAUTION, AND LOWEST BED POSITION. BED ALARM IS ON AT ALL THE TIME FOR SAFETY. CALL LIGHT WITHIN REACH, WILL ENDORSE HYDRAULIC PRESS OPERATOR.
--- NOTE | 2022-06-24 19:29 | NUR ---
RN OPENING NOTE RECEIVED PATIENT IN BED WITH EYES CLOSED LEGALLY BLIND,AO X 4.ABLE TO MAKE NEEDS KNOWN,HILLARY WELL ON ROOM AIR.NO SIGN SOB/DISTRESS NOTED,NO COMPLAIN OF PAIN/DISCOMFORT AT THIS TIME,IV ACCESS ONRUA ML SL,RCW PERMACATH,SAFETY MEASURE IN PLACE, CALL LIGHT WITHIN REACH, WILL CONTINUE TO MONITOR.
[2022-06-24 20:00] VITALS: BP 150/103
[2022-06-24] MEDS: GABAPENTIN 300 MG CAPSULE PO SCH (21:05)
[2022-06-24] MEDS: INSULIN GLARGINE, 100 UNIT/ML CARTRIDGE SQ SCH (21:31)
--- NOTE | 2022-06-24 21:31 | NUR ---
RN NOTE; PT REFUSED TO CHECK B/S AND LANTUS 5UNIT.PT SAID,HE DON'T NEED IT,EXPLAIN THE BENEFITS X3.
[2022-06-24] MEDS: MIRTAZAPINE 45 MG TABLET PO SCH (21:41)
[2022-06-25] MEDS: PIPERACILLIN /TAZOBACTAM 2.25 G in IV D5W 50 ML IV SCH ×3 (04:21→21:09)
[2022-06-25 06:11] LABS: EOSINOPHILS % (AUTO) 0.5 % (0.0-6.0); HEMATOCRIT 24 % (39-51); HEMOGLOBIN 7.3 g/dL (13.5-17.5); LYMPHOCYTES # (AUTO) 3.6 K/uL (0.8-4.8); MEAN CORPUSCULAR HGB CONC 30 g/dl (31.0-36.0); MEAN CORPUSCULAR VOLUME 88 fL (80-96); MONOCYTES # (AUTO) 0.6 K/uL (0.1-1.30); MONOCYTES % (AUTO) 4.8 % (2.0-12.0); NEUTROPHILS # (AUTO) 7.7 K/uL (1.8-8.9); NEUTROPHILS % (AUTO) 64.7 % (43.0-81.0); PLATELET COUNT (AUTO) 224 K/uL (150-450); RED BLOOD CELL COUNT(AUTO) 2.76 MIL/uL (4.5-6.0); WHITE BLOOD COUNT (AUTO) 11.9 K/uL (4.3-11.0)
[2022-06-25 06:22] LABS: CALCIUM, SERUM 6.7 mg/dL (8.5-10.1); MAGNESIUM 1.7 mg/dL (1.8-2.4); PHOSPHORUS 3.3 mg/dL (2.5-4.9)
--- NOTE | 2022-06-25 06:23 | NUR ---
RN CLOSING NOTE; PATIENT IN BED WITH EYES CLOSED LEGALLY BLIND,AO X 4.ABLE TO MAKE NEEDS KNOWN,HILLARY WELL ON ROOM AIR.NO SIGN SOB/DISTRESS NOTED,NO COMPLAIN OF PAIN/DISCOMFORT DURING SHIFT,DUE MEDS GIVEN ORDER,ALL NEEDS ATTENDED,IV ACCESS ON REYES ML SL,RCW PERMACATH,SAFETY MEASURE IN PLACE, CALL LIGHT WITHIN REACH, WILL ENDORSED TO NEXT SHIFT,
[2022-06-25 06:40] LABS: POTASSIUM 2.7 mmol/L (3.5-5.1)
[2022-06-25] MEDS: PANTOPRAZOLE 40 MG TABLET.DR PO SCH (07:30)
--- NOTE | 2022-06-25 07:41 | NUR ---
RN OPENING NOTE RECEIVED PATIENT SLEEPING IN BED, AO X 4. ABLE TO RESPONDS PHYSICAL STIMULI. RESPIRATORY EVEN AND UNLABORED ROOM AIR. IN NO ACUTE DISTRESS OBSERVED. SKIN IS WARM TO TOUCH, KEEP CLEAN/DRY. KEPT ELEVATED HOB FOR ASPIRATION PRECAUTION/ENSURE AIRWAY, AND LOWEST BED POSITIONED. BED ALARM IS ON AT ALL THE TIME FOR SAFETY. CALL LIGHT WITHIN REACH, WILL CONTINUE TO MONITOR.
--- NOTE | 2022-06-25 08:00 | NUR ---
PATIENT NOTICED POTASSIUMS LEVEL IS 2.7 THIS MORNING, DR. BRICE MADE AWARE. NEW ORDER: PSYCH CONSULT R/O DEPRESSION, SINCE PATIENT REFUSED WOUND TREATMENT AND PO MEDICATIONS. NO POTASSIUM REPLACEMENT ORDER DUE TO PATIENT HAVING HD. WILL CONTINUE TO MONITOR CLOSELY.
[2022-06-25] MEDS ORDERED: Magnesium 1GM/D5W 100ML PREMIX 100 ML IV SCH (08:30)
[2022-06-25] MEDS ORDERED: POTASSIUM CHLORIDE 20 MEQ TAB.PRT.SR PO ONE (08:30)
[2022-06-25] MEDS: CARVEDILOL 12.5 MG TABLET PO SCH ×2 (09:00→21:06)
[2022-06-25] MEDS: VENLAFAXINE XR 150 MG CAP.SR.24H PO SCH (09:00)
[2022-06-25] MEDS: FERROUS SULFATE (325 MG) 325 MG/TAB TABLET PO SCH ×3 (09:00→17:00)
[2022-06-25] MEDS: SENNOSIDES 8.6 MG TABLET PO SCH ×3 (09:00→17:00)
[2022-06-25] MEDS: EMTRICITABINE PO SCH (09:00)
[2022-06-25] MEDS: POLYETHYLENE GLYCOL 3350 17 GM POWD.PACK PO SCH (09:00)
[2022-06-25] MEDS: DOCUSATE SODIUM 250 MG CAPSULE PO SCH (09:00)
[2022-06-25] MEDS: LOSARTAN POTASSIUM 50 MG TABLET PO SCH (09:00)
[2022-06-25] MEDS: VIT B CMPLX 3/FA/VIT C/BIOTIN 1 TAB TABLET PO SCH (09:00)
[2022-06-25] MEDS: ASPIRIN 81 MG TAB.CHEW PO SCH (09:00)
[2022-06-25] MEDS: DOLUTEGRAVIR SODIUM 50 MG PO SCH (09:00)
[2022-06-25] MEDS: NIFEdipine XL (30MG) 30 MG TAB PO SCH (09:00)
[2022-06-25] MEDS: BUPROPION XL 150 MG TAB.ER.24 PO SCH (09:00)
[2022-06-25] MEDS: TENOFOV ALAFENAM PO SCH (09:00)
[2022-06-25] MEDS: APIXABAN 5 MG TABLET PO SCH ×2 (09:00→17:00)
[2022-06-25 09:01] LABS: BASOPHILS % (AUTO) 0.2 % (0.0-2.0); EOSINOPHILS % (AUTO) 0.4 % (0.0-6.0); HEMATOCRIT 27 % (39-51); HEMOGLOBIN 8.4 g/dL (13.5-17.5); LYMPHOCYTES # (AUTO) 3.5 K/uL (0.8-4.8); MEAN CORPUSCULAR HGB CONC 31 g/dl (31.0-36.0); MEAN CORPUSCULAR VOLUME 86 fL (80-96); MONOCYTES # (AUTO) 0.6 K/uL (0.1-1.30); MONOCYTES % (AUTO) 4.4 % (2.0-12.0); NEUTROPHILS # (AUTO) 9.2 K/uL (1.8-8.9); PLATELET COUNT (AUTO) 272 K/uL (150-450); RED BLOOD CELL COUNT(AUTO) 3.18 MIL/uL (4.5-6.0); WHITE BLOOD COUNT (AUTO) 13.3 K/uL (4.3-11.0)
[2022-06-25 09:16] LABS: ALANINE AMINOTRANSFERASE < 6 U/L (12-78); ALKALINE PHOSPHATASE 104 U/L (46-116); ASPARTATE AMINOTRANSFERASE 8 U/L (15-37); BILIRUBIN,TOTAL 0.4 mg/dL (0.2-1.0); CARBON DIOXIDE 26 mmol/L (21-32); CHLORIDE 106 mmol/L (98-107); CREATININE 3.4 mg/dL (0.6-1.3); GLUCOSE 109 mg/dL (74-106); MAGNESIUM 1.8 mg/dL (1.8-2.4); PHOSPHORUS 3.4 mg/dL (2.5-4.9); POTASSIUM 2.9 mmol/L (3.5-5.1); SODIUM SERUM 139 mmol/L (136-145); TOTAL PROTEIN, SERUM 5.9 g/dL (6.4-8.2); UREA NITROGEN, BLOOD 19 mg/dL (7-18)
[2022-06-25 09:22] LABS: ALBUMIN 1.1 g/dL (3.4-5.0)
[2022-06-25] MEDS: DAKINS QUARTER STRENGTH (0.125%) 480 ML BOTTLE TOP SCH (10:41)
[2022-06-25] MEDS ORDERED: POTASSIUM CL. PREMIX PERIPHER. 50 ML IV SCH (11:00)
--- NOTE | 2022-06-25 18:00 | NUR ---
RN CLOSING NOTE PATIENT RESTING IN BED. IN NO ACUTE DISTRESS OBSERVED. RESPIRATORY EVEN AND UNLABORED ON ROOM AIR. SKIN IS WARM TO TOUCH KEEP CLEAN/DRY. PATIENT REFUSED ALL PO MEDICATIONS, TAKE V/S, AND WOUND TX AND DR. BRICE AWARE OF THE ISSUE. KEPT ELEVATED HOB FOR ENSURE AIRWAY/ASPIRATION PRECAUTION, AND LOWEST BED POSITION. BED ALARM IS ON AT ALL THE TIME FOR SAFETY. CALL LIGHT WITHIN REACH, WILL ENDORSE WELT SLASHER.
--- NOTE | 2022-06-25 19:15 | NUR ---
RN OPENING NOTE RECEIVED PATIENT IN BED WITH EYES CLOSED LEGALLY BLIND,AO X 4.ABLE TO MAKE NEEDS KNOWN,HILLARY WELL ON ROOM AIR.NO SIGN SOB/DISTRESS NOTED,NO COMPLAIN OF PAIN/DISCOMFORT AT THIS TIME,IV ACCESS ON REYES ML SL,RCW PERMACATH,PATENT AND INTACT,SAFETY MEASURE IN PLACE, CALL LIGHT WITHIN REACH, WILL CONTINUE TO MONITOR.
[2022-06-25 20:32] VITALS: BP 210/128
[2022-06-25] MEDS: GABAPENTIN 300 MG CAPSULE PO SCH (21:05)
[2022-06-25] MEDS: MIRTAZAPINE 45 MG TABLET PO SCH (21:05)
[2022-06-25] MEDS: INSULIN GLARGINE, 100 UNIT/ML CARTRIDGE SQ SCH (21:26)
--- NOTE | 2022-06-25 21:27 | NUR ---
RN NOTE; PT REFUSED TO CHECK B/S AND LANTUS 5UNIT.PT SAID,HE DON'T NEED IT,EXPLAIN THE BENEFITS X3.
[2022-06-26 00:14] VITALS: BP 198/118
--- NOTE | 2022-06-26 04:00 | NUR ---
RN NOTE; PT REFUSED TO TAKE PICTURE WOUND.
[2022-06-26] MEDS: PIPERACILLIN /TAZOBACTAM 2.25 G in IV D5W 50 ML IV SCH (04:10)
[2022-06-26 04:41] VITALS: BP 196/124
--- NOTE | 2022-06-26 07:02 | NUR ---
MS RN OPENING NOTES RECEIVED PATIENT SLEEPING IN BED, A/Ox4, BLIND, RESPONSIVE TO VERBAL STIMULI. ON ROOM AIR NO S/S OF RESPIRATORY DISTRESS. IV ACCESS REYES MIDLINE S/L, INTACT AND PATENT. RCW HD CATH DRESSING INTACT. FC DRAINING DARK YELLOW URINE. SKIN ISSUES: SACRAL WOUND AND BILATERAL HEEL DTI, DRESSINGS IN PLACE. SAFETY MEASURES IN PLACE: BED LOCKED AND IN LOWEST POSITION, SIDE RAILS UPx3, CALL LIGHT WITHIN REACH, HOB ELEVATED. WILL CONTINUE TO MONITOR.
[2022-06-26 08:00] VITALS: BP 169/88
[2022-06-26] MEDS: ASPIRIN 81 MG TAB.CHEW PO SCH (08:14)
[2022-06-26] MEDS: VIT B CMPLX 3/FA/VIT C/BIOTIN 1 TAB TABLET PO SCH (08:14)
[2022-06-26] MEDS: NIFEdipine XL (30MG) 30 MG TAB PO SCH (08:15)
[2022-06-26] MEDS: BUPROPION XL 150 MG TAB.ER.24 PO SCH (08:15)
[2022-06-26] MEDS: PANTOPRAZOLE 40 MG TABLET.DR PO SCH (08:15)
[2022-06-26] MEDS: CARVEDILOL 12.5 MG TABLET PO SCH ×2 (08:15→21:18)
[2022-06-26] MEDS: FERROUS SULFATE (325 MG) 325 MG/TAB TABLET PO SCH ×3 (08:15→16:13)
[2022-06-26] MEDS: EMTRICITABINE PO SCH (08:16)
[2022-06-26] MEDS: TENOFOV ALAFENAM PO SCH (08:16)
[2022-06-26] MEDS: VENLAFAXINE XR 150 MG CAP.SR.24H PO SCH (08:16)
[2022-06-26] MEDS: DOLUTEGRAVIR SODIUM 50 MG PO SCH (08:16)
[2022-06-26] MEDS: ACETAMINOPHEN 325 MG TABLET PO PRN ×2 (08:16→17:35)
[2022-06-26] MEDS: LOSARTAN POTASSIUM 50 MG TABLET PO SCH (08:18)
[2022-06-26] MEDS: APIXABAN 5 MG TABLET PO SCH ×2 (08:21→16:16)
[2022-06-26] MEDS: DAKINS QUARTER STRENGTH (0.125%) 480 ML BOTTLE TOP SCH (08:22)
[2022-06-26] MEDS: POLYETHYLENE GLYCOL 3350 17 GM POWD.PACK PO SCH (08:24)
[2022-06-26] MEDS: DOCUSATE SODIUM 250 MG CAPSULE PO SCH (08:24)
[2022-06-26] MEDS: SENNOSIDES 8.6 MG TABLET PO SCH ×3 (08:24→16:17)
[2022-06-26] MEDS ORDERED: MEROPENEM 500 MG in IV NS 0.9% 50 ML IV SCH (09:00)
--- NOTE | 2022-06-26 09:00 | NUR ---
RN NOTES PATIENT COMPLAINED OF PAIN OF SACRAL AREA AND REQUESTED TYLENOL WITH MORNING MEDICATION. WILL CONTINUE TO MONITOR.
[2022-06-26] MEDS: MEROPENEM 1 G in IV NS 0.9% 100 ML IV SCH ×2 (09:06→21:16)
[2022-06-26] MEDS ORDERED: MERO500V23 IV (09:16)
[2022-06-26 10:42] LABS: BASOPHILS % (AUTO) 0.3 % (0.0-2.0); EOSINOPHILS % (AUTO) 0.6 % (0.0-6.0); HEMATOCRIT 27 % (39-51); HEMOGLOBIN 8.2 g/dL (13.5-17.5); LYMPHOCYTES # (AUTO) 2.9 K/uL (0.8-4.8); LYMPHOCYTES % (AUTO) 25.5 % (20.0-44.0); MEAN CORPUSCULAR HGB CONC 30 g/dl (31.0-36.0); MEAN CORPUSCULAR VOLUME 87 fL (80-96); MONOCYTES # (AUTO) 0.5 K/uL (0.1-1.30); MONOCYTES % (AUTO) 4.2 % (2.0-12.0); NEUTROPHILS % (AUTO) 69.4 % (43.0-81.0); PLATELET COUNT (AUTO) 249 K/uL (150-450); RED BLOOD CELL COUNT(AUTO) 3.13 MIL/uL (4.5-6.0); WHITE BLOOD COUNT (AUTO) 11.5 K/uL (4.3-11.0)
[2022-06-26 10:58] LABS: CALCIUM, SERUM 7.8 mg/dL (8.5-10.1); CREATININE 3.5 mg/dL (0.6-1.3); MAGNESIUM 1.8 mg/dL (1.8-2.4); PHOSPHORUS 3.2 mg/dL (2.5-4.9)
[2022-06-26 12:05] LABS: POTASSIUM 2.6 mmol/L (3.5-5.1)
[2022-06-26] MEDS: hydrALAZINE HCL IV 20 MG VIAL IV PRN (16:15)
[2022-06-26 16:38] VITALS: BP 180/100
--- NOTE | 2022-06-26 18:30 | NUR ---
RN NOTES PATIENT COMPLAINED OF PAIN OF HIS SHOULDER, PRN TYLENOL ADMINISTERED.
--- NOTE | 2022-06-26 18:37 | NUR ---
MS RN CLOSING NOTES PATIENT SLEEPING IN BED, A/Ox4, BLIND, RESPONSIVE TO VERBAL STIMULI. STABLE ON ROOM AIR NO S/S OF RESPIRATORY DISTRESS. IV ACCESS REYES MIDLINE S/L, INTACT AND PATENT. RCW HD CATH DRESSING INTACT. FC DRAINING DARK YELLOW URINE. SKIN ISSUES: SACRAL WOUND AND BILATERAL HEEL DTI, DRESSINGS IN PLACE. SAFETY MEASURES MAINTAINED: BED LOCKED AND IN LOWEST POSITION, SIDE RAILS UPx3, CALL LIGHT WITHIN REACH, HOB ELEVATED. WILL ENDORSE TO NEXT SHIFT ANY BRYN.
[2022-06-26 20:00] VITALS: BP 150/98
[2022-06-26] MEDS: MIRTAZAPINE 45 MG TABLET PO SCH (21:16)
[2022-06-26] MEDS: GABAPENTIN 300 MG CAPSULE PO SCH (21:17)
[2022-06-26] MEDS: INSULIN GLARGINE, 100 UNIT/ML CARTRIDGE SQ SCH (22:00)
--- NOTE | 2022-06-26 22:11 | NUR ---
RN NOTE; PT REFUSED TO CHECK B/S AND LANTUS 5UNIT.PT SAID,HE DON'T NEED IT,EXPLAIN THE BENEFITS X3.
[2022-06-27] MEDS: ACETAMINOPHEN 325 MG TABLET PO PRN (03:25)
--- NOTE | 2022-06-27 06:19 | NUR ---
RN CLOSING NOTE; PATIENT IN BED WITH EYES CLOSED LEGALLY BLIND,AO X 4.ABLE TO MAKE NEEDS KNOWN,HILLARY WELL ON ROOM AIR.NO SIGN SOB/DISTRESS NOTED,NO COMPLAINED OF PAIN/DISCOMFORT DURING SHIFT,DUE MEDS GIVEN ORDER,ALL NEEDS ATTENDED,IV ACCESS ON REYES ML SL,RCW PERMACATH,SAFETY MEASURE IN PLACE, CALL LIGHT WITHIN REACH, WILL ENDORSED TO NEXT SHIFT,
[2022-06-27 08:00] VITALS: BP 121/77
[2022-06-27] MEDS: VIT B CMPLX 3/FA/VIT C/BIOTIN 1 TAB TABLET PO SCH (08:28)
[2022-06-27] MEDS: PANTOPRAZOLE 40 MG TABLET.DR PO SCH (08:28)
[2022-06-27] MEDS: EMTRICITABINE PO SCH (08:29)
[2022-06-27] MEDS: FERROUS SULFATE (325 MG) 325 MG/TAB TABLET PO SCH ×3 (08:29→16:56)
[2022-06-27] MEDS: BUPROPION XL 150 MG TAB.ER.24 PO SCH (08:29)
[2022-06-27] MEDS: DOLUTEGRAVIR SODIUM 50 MG PO SCH (08:29)
[2022-06-27] MEDS: VENLAFAXINE XR 150 MG CAP.SR.24H PO SCH (08:29)
[2022-06-27] MEDS: TENOFOV ALAFENAM PO SCH (08:29)
[2022-06-27] MEDS: ASPIRIN 81 MG TAB.CHEW PO SCH (08:29)
[2022-06-27] MEDS: LOSARTAN POTASSIUM 50 MG TABLET PO SCH (08:30)
[2022-06-27] MEDS: CARVEDILOL 12.5 MG TABLET PO SCH ×2 (08:30→21:50)
[2022-06-27] MEDS: NIFEdipine XL (30MG) 30 MG TAB PO SCH (08:30)
[2022-06-27] MEDS: MEROPENEM 1 G in IV NS 0.9% 100 ML IV SCH ×2 (08:31→21:49)
[2022-06-27] MEDS: DAKINS QUARTER STRENGTH (0.125%) 480 ML BOTTLE TOP SCH (08:31)
[2022-06-27] MEDS: APIXABAN 5 MG TABLET PO SCH ×2 (08:34→16:59)
[2022-06-27] MEDS: SENNOSIDES 8.6 MG TABLET PO SCH ×3 (08:36→17:00)
[2022-06-27] MEDS: POLYETHYLENE GLYCOL 3350 17 GM POWD.PACK PO SCH (08:36)
[2022-06-27] MEDS: DOCUSATE SODIUM 250 MG CAPSULE PO SCH (08:36)
[2022-06-27] MEDS: EPOETIN ALFA-EPBX 10,000 UNIT/ML VIAL SQ SCH (14:46)
[2022-06-27 16:00] VITALS: BP 129/80
--- NOTE | 2022-06-27 18:43 | NUR ---
MS RN CLOSING NOTES PATIENT AWAKE IN BED, A/Ox4, BLIND, RESPONSIVE TO VERBAL STIMULI. STABLE ON ROOM AIR NO S/S OF RESPIRATORY DISTRESS. IV ACCESS REYES MIDLINE S/L, INTACT AND PATENT. RCW HD CATH DRESSING INTACT. FC DRAINING DARK YELLOW URINE. SKIN ISSUES: SACRAL WOUND AND BILATERAL HEEL DTI, DRESSINGS IN PLACE. SAFETY MEASURES IN PLACE: BED LOCKED AND IN LOWEST POSITION, SIDE RAILS UPx3, CALL LIGHT WITHIN REACH, HOB ELEVATED. WILL ENDORSE TO NEXT SHIFT ANY BRYN.
--- NOTE | 2022-06-27 19:10 | NUR ---
MS RN OPENING NOTES RECEIVED PT AWAKE IN BED, A/Ox4, BLIND, RESPONSIVE TO VERBAL STIMULI, ABLE TO MAKE NEEDS KNOWN. ON RA WITH NO S/S OF RESPIRATORY DISTRESS. IV ACCESS REYES MIDLINE S/L, INTACT AND PATENT. RCW HD CATH DRESSING INTACT. FC DRAINING DARK YELLOW URINE. SKIN ISSUES: SACRAL WOUND AND BILATERAL HEEL DTI, DRESSINGS IN PLACE. SAFETY MEASURES IN PLACE: BED LOCKED AND IN LOWEST POSITION, SIDE RAILS UPx3, CALL LIGHT WITHIN REACH, HOB ELEVATED. WILL CONTINUE TO MONITOR AND ASSIST.
[2022-06-27 20:00] VITALS: BP 121/74
[2022-06-27] MEDS: GABAPENTIN 300 MG CAPSULE PO SCH (21:51)
[2022-06-27] MEDS: MIRTAZAPINE 45 MG TABLET PO SCH (21:51)
[2022-06-27] MEDS: INSULIN GLARGINE, 100 UNIT/ML CARTRIDGE SQ SCH (22:00)
[2022-06-28] MEDS: ACETAMINOPHEN 325 MG TABLET PO PRN (00:06)
[2022-06-28 06:06] LABS: BASOPHILS % (AUTO) 0.3 % (0.0-2.0); EOSINOPHILS % (AUTO) 2.6 % (0.0-6.0); HEMATOCRIT 27 % (39-51); LYMPHOCYTES # (AUTO) 4.2 K/uL (0.8-4.8); LYMPHOCYTES % (AUTO) 33.1 % (20.0-44.0); MEAN CORPUSCULAR HGB CONC 30 g/dl (31.0-36.0); MEAN CORPUSCULAR VOLUME 87 fL (80-96); MONOCYTES # (AUTO) 0.6 K/uL (0.1-1.30); NEUTROPHILS # (AUTO) 7.6 K/uL (1.8-8.9); PLATELET COUNT (AUTO) 331 K/uL (150-450); RED BLOOD CELL COUNT(AUTO) 3.07 MIL/uL (4.5-6.0); WHITE BLOOD COUNT (AUTO) 12.8 K/uL (4.3-11.0)
--- NOTE | 2022-06-28 07:10 | NUR ---
MS RN CLOSING NOTES PT IN BED SLEEPING AT THIS TIME. A/Ox4, BLIND, RESPONSIVE TO VERBAL STIMULI, ABLE TO MAKE NEEDS KNOWN. STABLE ON RA WITH NO S/S OF RESPIRATORY DISTRESS. IV ACCESS REYES MIDLINE S/L, INTACT AND PATENT. RCW HD CATH DRESSING INTACT. FC DRAINING DARK YELLOW URINE. SKIN ISSUES: SACRAL WOUND (DRESSING CHANGED) AND BILATERAL HEEL DTI (DRESSING INTACT, UNCHANGED). ALL CARE PROVIDED AND ADMINISTERED MEDICATIONS TOLERATED WELL. SAFETY MEASURES MAINTAINED: BED LOCKED AND IN LOWEST POSITION, SIDE RAILS UP X3, CALL LIGHT WITHIN REACH, HOB ELEVATED. WILL ENDORSE BRYN TO APARTMENT RENTAL AGENT NURSE.
[2022-06-28] MEDS: PANTOPRAZOLE 40 MG TABLET.DR PO SCH (07:30)
[2022-06-28] MEDS: DOCUSATE SODIUM 250 MG CAPSULE PO SCH (09:00)
[2022-06-28] MEDS: TENOFOV ALAFENAM PO SCH (09:00)
[2022-06-28] MEDS: BUPROPION XL 150 MG TAB.ER.24 PO SCH (09:00)
[2022-06-28] MEDS: APIXABAN 5 MG TABLET PO SCH ×2 (09:00→17:00)
[2022-06-28] MEDS: ASPIRIN 81 MG TAB.CHEW PO SCH (09:00)
[2022-06-28] MEDS: MEROPENEM 1 G in IV NS 0.9% 100 ML IV SCH ×2 (09:00→21:09)
[2022-06-28] MEDS: EMTRICITABINE PO SCH (09:00)
[2022-06-28] MEDS: NIFEdipine XL (30MG) 30 MG TAB PO SCH (09:00)
[2022-06-28] MEDS: SENNOSIDES 8.6 MG TABLET PO SCH ×3 (09:00→17:00)
[2022-06-28] MEDS: VIT B CMPLX 3/FA/VIT C/BIOTIN 1 TAB TABLET PO SCH (09:00)
[2022-06-28] MEDS: FERROUS SULFATE (325 MG) 325 MG/TAB TABLET PO SCH ×3 (09:00→17:00)
[2022-06-28] MEDS: LOSARTAN POTASSIUM 50 MG TABLET PO SCH (09:00)
[2022-06-28] MEDS: DOLUTEGRAVIR SODIUM 50 MG PO SCH (09:00)
[2022-06-28] MEDS: POLYETHYLENE GLYCOL 3350 17 GM POWD.PACK PO SCH (09:00)
[2022-06-28] MEDS: VENLAFAXINE XR 150 MG CAP.SR.24H PO SCH (09:00)
[2022-06-28] MEDS: CARVEDILOL 12.5 MG TABLET PO SCH ×2 (09:00→21:10)
[2022-06-28] MEDS: DAKINS QUARTER STRENGTH (0.125%) 480 ML BOTTLE TOP SCH (09:00)
[2022-06-28 10:00] VITALS: BP 127/87
--- NOTE | 2022-06-28 19:20 | NUR ---
MS RN OPENING NOTES RECEIVED PT AWAKE IN BED, EATING AT THIS TIME. A/Ox4, BLIND, RESPONSIVE TO VERBAL STIMULI, ABLE TO MAKE NEEDS KNOWN. ON RA WITH NO S/S OF RESPIRATORY DISTRESS. IV ACCESS REYES MIDLINE S/L, INTACT AND PATENT. RCW HD CATH DRESSING INTACT. FC DRAINING DARK YELLOW URINE. SKIN ISSUES: SACRAL WOUND AND BILATERAL HEEL DTI, DRESSINGS IN PLACE. SAFETY MEASURES IN PLACE: BED LOCKED AND IN LOWEST POSITION, SIDE RAILS UPx3, CALL LIGHT WITHIN REACH, HOB ELEVATED. WILL CONTINUE TO MONITOR AND ASSIST.
[2022-06-28 20:00] VITALS: BP 161/109
[2022-06-28] MEDS: GABAPENTIN 300 MG CAPSULE PO SCH (21:11)
[2022-06-28] MEDS: INSULIN GLARGINE, 100 UNIT/ML CARTRIDGE SQ SCH (21:11)
[2022-06-28] MEDS: MIRTAZAPINE 45 MG TABLET PO SCH (21:11)
--- NOTE | 2022-06-29 07:15 | NUR ---
MS RN CLOSING NOTES PT ASLEEP IN BED AT THIS TIME. A/Ox4, BLIND, RESPONSIVE TO VERBAL STIMULI, ABLE TO MAKE NEEDS KNOWN. STABLE ON RA WITH NO S/S OF RESPIRATORY DISTRESS. IV ACCESS REYES MIDLINE S/L, INTACT AND PATENT. RCW HD CATH DRESSING INTACT. FC DRAINING DARK YELLOW URINE. SKIN ISSUES: SACRAL WOUND AND BILATERAL HEEL DTI, DRESSINGS REPLACED. ALL CARE PROVIDED AND ADMINISTERED MEDICATIONS TOLERATED WELL. SAFETY MEASURES MAINTAINED: BED LOCKED AND IN LOWEST POSITION, SIDE RAILS UPx3, CALL LIGHT WITHIN REACH, HOB ELEVATED. WILL ENDORSE BRYN TO DAY SHIFT NURSE.
[2022-06-29] MEDS: PANTOPRAZOLE 40 MG TABLET.DR PO SCH (11:01)
[2022-06-29] MEDS: ASPIRIN 81 MG TAB.CHEW PO SCH (11:02)
[2022-06-29] MEDS: DOCUSATE SODIUM 250 MG CAPSULE PO SCH (11:02)
[2022-06-29] MEDS: CARVEDILOL 12.5 MG TABLET PO SCH ×2 (11:13→21:12)
[2022-06-29] MEDS: NIFEdipine XL (30MG) 30 MG TAB PO SCH (11:14)
[2022-06-29] MEDS: BUPROPION XL 150 MG TAB.ER.24 PO SCH (11:14)
[2022-06-29] MEDS: LOSARTAN POTASSIUM 50 MG TABLET PO SCH (11:15)
[2022-06-29] MEDS: VIT B CMPLX 3/FA/VIT C/BIOTIN 1 TAB TABLET PO SCH (11:15)
[2022-06-29] MEDS: FERROUS SULFATE (325 MG) 325 MG/TAB TABLET PO SCH ×3 (11:16→17:26)
[2022-06-29] MEDS: SENNOSIDES 8.6 MG TABLET PO SCH ×3 (11:16→17:26)
[2022-06-29] MEDS: POLYETHYLENE GLYCOL 3350 17 GM POWD.PACK PO SCH (11:19)
[2022-06-29] MEDS: DAKINS QUARTER STRENGTH (0.125%) 480 ML BOTTLE TOP SCH (11:20)
[2022-06-29] MEDS: MEROPENEM 1 G in IV NS 0.9% 100 ML IV SCH ×2 (11:49→20:10)
[2022-06-29] MEDS: VENLAFAXINE XR 150 MG CAP.SR.24H PO SCH (11:49)
[2022-06-29] MEDS: TENOFOV ALAFENAM PO SCH (11:50)
[2022-06-29] MEDS: DOLUTEGRAVIR SODIUM 50 MG PO SCH (11:50)
[2022-06-29] MEDS: EMTRICITABINE PO SCH (11:50)
[2022-06-29] MEDS: APIXABAN 5 MG TABLET PO SCH ×2 (11:52→17:30)
[2022-06-29 14:55] LABS: HEMOGLOBIN 8.9 g/dL (13.5-17.5)
[2022-06-29] MEDS: ACETAMINOPHEN 325 MG TABLET PO PRN (17:28)
[2022-06-29] MEDS: EPOETIN ALFA-EPBX 10,000 UNIT/ML VIAL SQ SCH (18:22)
[2022-06-29 21:04] VITALS: BP 120/68
[2022-06-29] MEDS: MIRTAZAPINE 45 MG TABLET PO SCH (21:11)
[2022-06-29] MEDS: GABAPENTIN 300 MG CAPSULE PO SCH (21:12)
[2022-06-29] MEDS: INSULIN GLARGINE, 100 UNIT/ML CARTRIDGE SQ SCH (21:12)
--- NOTE | 2022-06-30 02:20 | NUR ---
RN NOTES : Pt is resting in bed comfortably. On room air. No SOB. No S/S of distress noted.. Vs is stable. all needs attended and anticipated. kept Pt clean, dry and comfortable. safety precautions is maintained. Fall precautions is maintained. Will continue to monitor.
[2022-06-30 07:45] LABS: CALCIUM, SERUM 8.7 mg/dL (8.5-10.1); CREATININE 2.8 mg/dL (0.6-1.3); POTASSIUM 3.7 mmol/L (3.5-5.1)
[2022-06-30] MEDS: DOLUTEGRAVIR SODIUM 50 MG PO SCH (09:00)
[2022-06-30] MEDS: SENNOSIDES 8.6 MG TABLET PO SCH ×3 (09:00→17:00)
[2022-06-30] MEDS: ACETAMINOPHEN 325 MG TABLET PO PRN (11:03)
[2022-06-30] MEDS: DOCUSATE SODIUM 250 MG CAPSULE PO SCH (11:44)
[2022-06-30] MEDS: CYCLOBENZAPRINE 10 MG TABLET PO PRN ×2 (11:44→12:18)
[2022-06-30] MEDS: BUPROPION XL 150 MG TAB.ER.24 PO SCH (11:46)
[2022-06-30] MEDS: CARVEDILOL 12.5 MG TABLET PO SCH ×2 (11:46→20:23)
[2022-06-30] MEDS: LOSARTAN POTASSIUM 50 MG TABLET PO SCH (11:47)
[2022-06-30] MEDS: NIFEdipine XL (30MG) 30 MG TAB PO SCH (11:47)
[2022-06-30] MEDS: FERROUS SULFATE (325 MG) 325 MG/TAB TABLET PO SCH ×3 (11:47→18:17)
[2022-06-30] MEDS: ASPIRIN 81 MG TAB.CHEW PO SCH (11:48)
[2022-06-30] MEDS: PANTOPRAZOLE 40 MG TABLET.DR PO SCH (12:11)
[2022-06-30] MEDS: oxyCODONE IR immediate release 5 MG PO PRN (12:11)
[2022-06-30] MEDS: VIT B CMPLX 3/FA/VIT C/BIOTIN 1 TAB TABLET PO SCH (12:11)
[2022-06-30] MEDS: TENOFOV ALAFENAM PO SCH ×2 (12:12→12:17)
[2022-06-30] MEDS: VENLAFAXINE XR 150 MG CAP.SR.24H PO SCH ×2 (12:12→12:20)
[2022-06-30] MEDS: EMTRICITABINE PO SCH ×2 (12:12→12:17)
[2022-06-30] MEDS: DAKINS QUARTER STRENGTH (0.125%) 480 ML BOTTLE TOP SCH (12:15)
[2022-06-30] MEDS: POLYETHYLENE GLYCOL 3350 17 GM POWD.PACK PO SCH (12:19)
[2022-06-30] MEDS: APIXABAN 5 MG TABLET PO SCH ×2 (12:24→18:19)
[2022-06-30] MEDS: MEROPENEM 1 G in IV NS 0.9% 100 ML IV SCH ×2 (12:33→20:22)
--- NOTE | 2022-06-30 19:30 | NUR ---
RN OPENING NOTE PATIENT IN BED, AWAKE. PATIENT IS BLIND ON BOTH EYES. PATIENT IS A/O X 4, ABLE TO MAKE NEEDS KNOWN. PATIENT IS CURRENTLY ON RA, TOLERATING WELL. NO SOB NOTED. PATIENT HAS A SHINE CATHETER IN PLACE DRAINING VIA GRAVITY. PATIENT HAS A REYES MIDLINE 18 G FLUSHING WELL, PATENT AND INTACT. RCW HD CATH PRESENT. PATIENT DOES NOT REPORT ANY PAIN AT THIS TIME. PATIENT ORDERED GROCERIES, NOW AT BEDSIDE. SAFETY MEASURES IN PLACE: BED LOCKED AND IN LOWEST POSITION, CALL LIGHT WITHIN REACH, SIDE RAILS UP. WILL MONITOR PATIENT CLOSELY.
[2022-06-30 20:00] VITALS: BP 144/94
[2022-06-30] MEDS: GABAPENTIN 300 MG CAPSULE PO SCH (21:38)
[2022-06-30] MEDS: MIRTAZAPINE 45 MG TABLET PO SCH ×2 (21:38→22:00)
--- NOTE | 2022-06-30 21:40 | NUR ---
PATIENT REFUSED MIRTAZIPINE, PATIENT STATES IT MAKES HIM HALLUCINATE. MEDICATION PLACED BACK IN THE CASSETTE.
[2022-06-30] MEDS: INSULIN GLARGINE, 100 UNIT/ML CARTRIDGE SQ SCH (21:45)
--- NOTE | 2022-06-30 21:45 | NUR ---
PATIENT REFUSED LANTUS, BS CHECKED 161 MG/DL.
--- NOTE | 2022-07-01 06:54 | NUR ---
RN CLOSING NOTE PATIENT IN BED, EYES CLOSED, EASILY AWAKENED. PATIENT IS BLIND ON BOTH EYES. PATIENT IS A/O X 4, ABLE TO MAKE NEEDS KNOWN. PATIENT TOLERATED RA DURING THE SHIFT. NO SOB NOTED. PATIENT HAS A SHINE CATHETER IN PLACE DRAINING VIA GRAVITY. PATIENT HAS A REYES MIDLINE 18 G FLUSHING WELL, PATENT AND INTACT. RCW HD CATH PRESENT. PATIENT DOES NOT REPORT ANY PAIN AT THIS TIME. WOUND CARE RENDERED ON PATIENT'S SACRAL AND JULIANNE HEEL WOUNDS. SAFETY MEASURES IN PLACE: BED LOCKED AND IN LOWEST POSITION, CALL LIGHT WITHIN REACH, SIDE RAILS UP. ALL NEEDS MET AND ATTENDED. ALL ORDERS CARRIED OUT. WILL ENDORSE TO DAY SHIFT NURSE FOR BRYN.
[2022-07-01 08:00] VITALS: BP 149/100
[2022-07-01] MEDS: FERROUS SULFATE (325 MG) 325 MG/TAB TABLET PO SCH ×3 (09:00→17:00)
[2022-07-01] MEDS: ASPIRIN 81 MG TAB.CHEW PO SCH (12:46)
[2022-07-01] MEDS: LOSARTAN POTASSIUM 50 MG TABLET PO SCH (12:47)
[2022-07-01] MEDS: CARVEDILOL 12.5 MG TABLET PO SCH ×2 (12:48→21:40)
[2022-07-01] MEDS: BUPROPION XL 150 MG TAB.ER.24 PO SCH (12:48)
[2022-07-01] MEDS: DOCUSATE SODIUM 250 MG CAPSULE PO SCH (12:48)
[2022-07-01] MEDS: SENNOSIDES 8.6 MG TABLET PO SCH ×3 (12:49→17:00)
[2022-07-01] MEDS: VIT B CMPLX 3/FA/VIT C/BIOTIN 1 TAB TABLET PO SCH (12:49)
[2022-07-01] MEDS: PANTOPRAZOLE 40 MG TABLET.DR PO SCH (12:49)
[2022-07-01] MEDS: NIFEdipine XL (30MG) 30 MG TAB PO SCH (12:49)
[2022-07-01] MEDS: POLYETHYLENE GLYCOL 3350 17 GM POWD.PACK PO SCH (12:50)
[2022-07-01] MEDS: DOLUTEGRAVIR SODIUM 50 MG PO SCH (12:55)
[2022-07-01] MEDS: MEROPENEM 1 G in IV NS 0.9% 100 ML IV SCH ×2 (12:55→21:39)
[2022-07-01] MEDS: DAKINS QUARTER STRENGTH (0.125%) 480 ML BOTTLE TOP SCH (13:02)
[2022-07-01] MEDS: APIXABAN 5 MG TABLET PO SCH ×2 (13:06→18:32)
[2022-07-01] MEDS: EPOETIN ALFA-EPBX 10,000 UNIT/ML VIAL SQ SCH (15:00)
[2022-07-01 15:03] LABS: BASOPHILS # (AUTO) 0.1 K/uL (0.0-0.2); BASOPHILS % (AUTO) 0.5 % (0.0-2.0); EOSINOPHILS % (AUTO) 3.5 % (0.0-6.0); HEMATOCRIT 27 % (39-51); LYMPHOCYTES # (AUTO) 4.2 K/uL (0.8-4.8); LYMPHOCYTES % (AUTO) 29.3 % (20.0-44.0); MEAN CORPUSCULAR HGB CONC 30 g/dl (31.0-36.0); MEAN CORPUSCULAR VOLUME 90 fL (80-96); MONOCYTES # (AUTO) 0.7 K/uL (0.1-1.30); NEUTROPHILS # (AUTO) 8.9 K/uL (1.8-8.9); NEUTROPHILS % (AUTO) 61.7 % (43.0-81.0); PLATELET COUNT (AUTO) 448 K/uL (150-450); RED BLOOD CELL COUNT(AUTO) 3.01 MIL/uL (4.5-6.0); WHITE BLOOD COUNT (AUTO) 14.5 K/uL (4.3-11.0)
[2022-07-01] MEDS: oxyCODONE IR immediate release 5 MG PO PRN (16:07)
--- NOTE | 2022-07-01 19:27 | NUR ---
RN OPENING NOTE PATIENT IN BED, AWAKE, TALKING ON THE PHONE WITH HIS MOM. PATIENT IS BLIND ON BOTH EYES. PATIENT IS A/O X 4, ABLE TO MAKE NEEDS KNOWN. PATIENT IS CURRENTLY ON RA, TOLERATING WELL. NO SOB NOTED. PATIENT HAS A SHINE CATHETER IN PLACE DRAINING ARIANNE COLORED URINE VIA GRAVITY. PATIENT HAS A REYES MIDLINE 18 G FLUSHING WELL, PATENT AND INTACT. RCW HD CATH PRESENT. PATIENT DOES NOT REPORT ANY PAIN AT THIS TIME. PATIENT ORDERED GROCERIES FROM [facility] FOR TONIGHT WELL, NOW AT BEDSIDE. SAFETY MEASURES IN PLACE: BED LOCKED AND IN LOWEST POSITION, CALL LIGHT WITHIN REACH, SIDE RAILS UP. WILL MONITOR PATIENT CLOSELY.
[2022-07-01 20:00] VITALS: BP 134/88
[2022-07-01 20:03] LABS: EOSINOPHILS % (MANUAL) 3 % (0-4); LYMPHOCYTES % (MANUAL) 23 % (16-48); MONOCYTES % (MANUAL) 2 % (0-11.0); NEUTROPHILS % (MANUAL) 72 (42-76)
[2022-07-01] MEDS: MIRTAZAPINE 45 MG TABLET PO SCH (21:40)
[2022-07-01] MEDS: INSULIN GLARGINE, 100 UNIT/ML CARTRIDGE SQ SCH (21:40)
[2022-07-01] MEDS: GABAPENTIN 300 MG CAPSULE PO SCH (21:40)
--- NOTE | 2022-07-01 22:00 | NUR ---
RN NOTE PATIENT REFUSED REMERON PATIENT STATES HE HALLUCINATES WHEN HE TAKES THEM. PER PATIENT, HE WILL TALK TO HIS PSYCHOLOGIST TO ADJUST DOSAGE. PATIENT ALSO REFUSED HIS LANTUS STATES THAT HE DOES NOT NEED IT, OFFERED TO TAKE BS WELL, REFUSED.
[2022-07-02] MEDS: ACETAMINOPHEN 325 MG TABLET PO PRN ×2 (04:04→13:02)
--- NOTE | 2022-07-02 04:05 | NUR ---
RN NOTE PATIENT REPORTS FEELING WEIRD, THAT HE HAS A HEADACHE AND REQUESTED BP TO BE TAKEN BECAUSE HE FEELS LIKE HIS BP IS HIGH. BP CHECKED IT WAS 140/89. OFFERED PATIENT SOME TYLENOL FOR HIS HEADACHE AND MIGHT HELP HIM FEEL MORE COMFORTABLE. ADMINISTERED TYLENOL 650 MG TABLETS TO PATIENT.
--- NOTE | 2022-07-02 04:16 | NUR ---
PATIENT ALSO COMPLAINING OF HAVING SOB, ALTHOUGH PATIENT'S RESPIRATIONS WERE 20 BREATHS/MIN. AND REQUESTING O2 SUPPLEMENTATION FOR HIS COMFORT. PATIENT ON RA, 100% 02 SATURATION. 2LPM VIA NC ON PATIENT 100% 02 SAT. INFORMED PATIENT THAT THIS IS FOR HIS COMFORT, SINCE HIS O2 IS 100% JUST ON RA.
--- NOTE | 2022-07-02 06:57 | NUR ---
RN CLOSING NOTE PATIENT IN BED, EYES CLOSED, EASILY AWAKENED. PATIENT IS BLIND ON BOTH EYES. PATIENT IS A/O X 4, ABLE TO MAKE NEEDS KNOWN. PATIENT TOLERATED RA DURING THE SHIFT.PATIENT ON 2LPM VIA NC FOR COMFORT, NO SOB AT THIS TIME. PATIENT HAS A SHINE CATHETER IN PLACE DRAINING VIA GRAVITY. PATIENT HAS A REYES MIDLINE 18 G FLUSHING WELL, PATENT AND INTACT. RCW HD CATH PRESENT. PATIENT DOES NOT REPORT ANY PAIN AT THIS TIME. UNABLE TO DO WOUND CARE PATIENT REFUSED AND DID NOT WANT TO CHANGE LINENS WELL . SAFETY MEASURES IN PLACE: BED LOCKED AND IN LOWEST POSITION, CALL LIGHT WITHIN REACH, SIDE RAILS UP. ALL NEEDS MET AND ATTENDED. ALL ORDERS CARRIED OUT. WILL ENDORSE TO DAY SHIFT NURSE FOR BRYN.
[2022-07-02 08:00] VITALS: BP 139/88
[2022-07-02] MEDS: FERROUS SULFATE (325 MG) 325 MG/TAB TABLET PO SCH ×3 (08:50→18:20)
[2022-07-02] MEDS: VENLAFAXINE XR 150 MG CAP.SR.24H PO SCH (08:50)
[2022-07-02] MEDS: LOSARTAN POTASSIUM 50 MG TABLET PO SCH (08:50)
[2022-07-02] MEDS: DOCUSATE SODIUM 250 MG CAPSULE PO SCH (08:50)
[2022-07-02] MEDS: ASPIRIN 81 MG TAB.CHEW PO SCH (08:50)
[2022-07-02] MEDS: VIT B CMPLX 3/FA/VIT C/BIOTIN 1 TAB TABLET PO SCH (08:50)
[2022-07-02] MEDS: BUPROPION XL 150 MG TAB.ER.24 PO SCH (08:51)
[2022-07-02] MEDS: NIFEdipine XL (30MG) 30 MG TAB PO SCH (08:52)
[2022-07-02] MEDS: CARVEDILOL 12.5 MG TABLET PO SCH ×2 (08:52→21:39)
[2022-07-02] MEDS: DOLUTEGRAVIR SODIUM 50 MG PO SCH (08:53)
[2022-07-02] MEDS: MEROPENEM 1 G in IV NS 0.9% 100 ML IV SCH ×2 (08:53→21:39)
[2022-07-02] MEDS: TENOFOV ALAFENAM PO SCH (08:53)
[2022-07-02] MEDS: EMTRICITABINE PO SCH (08:53)
[2022-07-02] MEDS: DAKINS QUARTER STRENGTH (0.125%) 480 ML BOTTLE TOP SCH (08:54)
[2022-07-02] MEDS: SENNOSIDES 8.6 MG TABLET PO SCH ×3 (08:54→17:00)
[2022-07-02] MEDS: POLYETHYLENE GLYCOL 3350 17 GM POWD.PACK PO SCH (08:55)
[2022-07-02] MEDS: PANTOPRAZOLE 40 MG TABLET.DR PO SCH (08:55)
[2022-07-02] MEDS: APIXABAN 5 MG TABLET PO SCH ×2 (08:58→18:25)
[2022-07-02 16:00] VITALS: BP 116/77
[2022-07-02] MEDS: oxyCODONE IR immediate release 5 MG PO PRN (18:20)
--- NOTE | 2022-07-02 19:55 | NUR ---
RN OPENING NOTE PATIENT AWAKE IN BED. A/OX4 (BLIND). NO S/S OF DISTRESS, BREATHING WITHOUT DIFFICULTY ON 2L NC. REYES PICC SL INTACT AND PATENT; RCW PERMACATH INTACT W/ NO BLEEDING NOTED. SAFETY MEASURES IN PLACE: BED LOCKED AND AT LOWEST POSITION, RAILS UP X2, CALL PACHECO WITHIN REACH. WILL CONTINUE TO MONITOR PATIENT.
[2022-07-02 20:00] VITALS: BP 127/82
[2022-07-02] MEDS: GABAPENTIN 300 MG CAPSULE PO SCH (21:39)
[2022-07-02] MEDS: MIRTAZAPINE 45 MG TABLET PO SCH (21:39)
[2022-07-02] MEDS: INSULIN GLARGINE, 100 UNIT/ML CARTRIDGE SQ SCH (22:00)
--- NOTE | 2022-07-03 06:47 | NUR ---
RN OPENING NOTE PATIENT ASLEEP IN BED. A/OX4. NO S/S OF DISTRESS, BREATHING WITHOUT DIFFICULTY ON 2L NC. REYES PICC LINE SL INTACT AND PATENT; RCW PERMACATH INTACT W/ NO DISLODGEMENT OR BLEEDING NOTED. SAFETY MEASURES IN PLACE: BED LOCKED AND AT LOWEST POSITION, RAILS UP X2, CALL PACHECO WITHIN REACH. WILL CONTINUE TO MONITOR PATIENT. Addendum: 07/03/22 at 0653 by YAKOV WARNER RN CORRECTION: CLOSING NOTE [...] WILL ENDORSE TO NEXT SHIFT FOR BRYN.
--- NOTE | 2022-07-03 07:30 | NUR ---
MS RN OPENING NOTES RECEIVED PATIENT ON BED, AWAKE AND A/O X4. ON O2 AT 2LPM VIA NASAL CANNULA TOLERATING WELL. NO SOB NOTED. NOT IN DISTRESS. WITH IV ACCESS AT THE RIGHT UPPER ARM PICC LINE, SALINE LOCKED, PATENT AND INTACT.WITH RIGHT CHEST WALL PERMACATH FOR HD WITH CLEAN AND DRY DRESSING. SAFETY MEASURES IN PLACED. CALL LIGHT WITHIN REACH. BED ON LOWEST LOCKED POSITION, SIDE RAILS UP X2. WILL CONTINUE TO MONITOR.
[2022-07-03] MEDS: POLYETHYLENE GLYCOL 3350 17 GM POWD.PACK PO SCH (09:00)
[2022-07-03] MEDS: hydrALAZINE HCL IV 20 MG VIAL IV PRN (11:07)
[2022-07-03] MEDS: MEROPENEM 1 G in IV NS 0.9% 100 ML IV SCH ×2 (12:31→21:05)
[2022-07-03] MEDS: EMTRICITABINE PO SCH (12:33)
[2022-07-03] MEDS: DOLUTEGRAVIR SODIUM 50 MG PO SCH (12:33)
[2022-07-03] MEDS: TENOFOV ALAFENAM PO SCH (12:33)
[2022-07-03] MEDS: NIFEdipine XL (30MG) 30 MG TAB PO SCH (12:34)
[2022-07-03] MEDS: ASPIRIN 81 MG TAB.CHEW PO SCH (12:35)
[2022-07-03] MEDS: CARVEDILOL 12.5 MG TABLET PO SCH ×2 (12:35→21:05)
[2022-07-03] MEDS: VENLAFAXINE XR 150 MG CAP.SR.24H PO SCH (12:35)
[2022-07-03] MEDS: VIT B CMPLX 3/FA/VIT C/BIOTIN 1 TAB TABLET PO SCH (12:35)
[2022-07-03] MEDS: DOCUSATE SODIUM 250 MG CAPSULE PO SCH (12:35)
[2022-07-03] MEDS: LOSARTAN POTASSIUM 50 MG TABLET PO SCH (12:35)
[2022-07-03] MEDS: BUPROPION XL 150 MG TAB.ER.24 PO SCH (12:36)
[2022-07-03] MEDS: FERROUS SULFATE (325 MG) 325 MG/TAB TABLET PO SCH ×3 (12:36→17:15)
[2022-07-03] MEDS: SENNOSIDES 8.6 MG TABLET PO SCH ×3 (12:36→17:15)
[2022-07-03] MEDS: GABAPENTIN 300 MG CAPSULE PO SCH (12:36)
[2022-07-03] MEDS: PANTOPRAZOLE 40 MG TABLET.DR PO SCH (12:36)
[2022-07-03] MEDS: APIXABAN 5 MG TABLET PO SCH ×2 (12:37→17:16)
[2022-07-03] MEDS: DAKINS QUARTER STRENGTH (0.125%) 480 ML BOTTLE TOP SCH (12:50)
[2022-07-03] MEDS: ACETAMINOPHEN 325 MG TABLET PO PRN (17:15)
--- NOTE | 2022-07-03 18:38 | NUR ---
MS RN CLOSING NOTES PATIENT ON BED, AWAKE AND A/O X4. ON O2 AT 2LPM VIA NASAL CANNULA TOLERATING WELL. NO SOB NOTED. NOT IN DISTRESS. WITH IV ACCESS AT THE RIGHT UPPER ARM PICC LINE, SALINE LOCKED, PATENT AND INTACT. WITH RIGHT CHEST WALL PERMACATH FOR HD WITH CLEAN AND DRY DRESSING. S/P HEMODIALYSIS WITH AN OUTPUT OF 2.5L. DUE MEDS GIVEN. SAFETY MEASURES IN PLACED. CALL LIGHT WITHIN REACH. BED ON LOWEST LOCKED POSITION, SIDE RAILS UP X2. WILL ENDORSE TO NEXT SHIFT FOR BRYN.
--- NOTE | 2022-07-03 19:26 | NUR ---
RN OPENING NOTE PATIENT AWAKE IN BED. A/OX4. NO S/S OF DISTRESS, BREATHING WITHOUT DIFFICULTY ON 2L NC. REYES PICC SL INTACT AND PATENT; RCW PERMACATH INTACT AND WITHOUT ANY BLEEDING OR DISLODGMENT NOTED. SAFETY MEASURES IN PLACE: BED LOCKED AND AT LOWEST POSITION, RAILS UP X2, CALL PACHECO WITHIN REACH. WILL CONTINUE TO MONITOR PATIENT.
[2022-07-03] MEDS: INSULIN GLARGINE, 100 UNIT/ML CARTRIDGE SQ SCH (21:12)
[2022-07-03] MEDS: MIRTAZAPINE 45 MG TABLET PO SCH (21:12)
[2022-07-03] MEDS: oxyCODONE IR immediate release 5 MG PO PRN (22:25)
[2022-07-04] VITALS: BP 124/81
[2022-07-04] MEDS: ACETAMINOPHEN 325 MG TABLET PO PRN ×2 (00:19→16:57)
[2022-07-04 06:06] LABS: CALCIUM, SERUM 8.8 mg/dL (8.5-10.1); CREATININE 2.4 mg/dL (0.6-1.3); POTASSIUM 4.1 mmol/L (3.5-5.1)
--- NOTE | 2022-07-04 06:58 | NUR ---
RN CLOSING NOTE PATIENT ASLEEP IN BED. A/OX4. NO S/S OF DISTRESS, BREATHING WITHOUT DIFFICULTY ON 2L NC. RCW PERMACATH INTACT, NO DISLODGEMENT OR BLEEDING PRESENT; REYES PICC SL INTACT AND PATENT. SAFETY MEASURES IN PLACE: BED LOCKED AND AT LOWEST POSITION, RAILS UP X2, CALL PACHECO WITHIN REACH. WILL ENDORSE TO NEXT SHIFT FOR BRYN.
[2022-07-04 07:36] LABS: BASOPHILS # (AUTO) 0.1 K/uL (0.0-0.2); BASOPHILS % (AUTO) 0.5 % (0.0-2.0); HEMATOCRIT 23 % (39-51); LYMPHOCYTES # (AUTO) 3.9 K/uL (0.8-4.8); LYMPHOCYTES % (AUTO) 34.9 % (20.0-44.0); MEAN CORPUSCULAR HGB CONC 31 g/dl (31.0-36.0); MEAN CORPUSCULAR VOLUME 89 fL (80-96); MONOCYTES # (AUTO) 0.6 K/uL (0.1-1.30); MONOCYTES % (AUTO) 5.7 % (2.0-12.0); NEUTROPHILS # (AUTO) 6.2 K/uL (1.8-8.9); NEUTROPHILS % (AUTO) 54.9 % (43.0-81.0); PLATELET COUNT (AUTO) 497 K/uL (150-450); RED BLOOD CELL COUNT(AUTO) 2.55 MIL/uL (4.5-6.0); WHITE BLOOD COUNT (AUTO) 11.3 K/uL (4.3-11.0)
[2022-07-04 08:00] VITALS: BP 145/99
[2022-07-04] MEDS: SENNOSIDES 8.6 MG TABLET PO SCH ×3 (09:00→16:57)
[2022-07-04] MEDS: DAKINS QUARTER STRENGTH (0.125%) 480 ML BOTTLE TOP SCH (09:00)
[2022-07-04] MEDS: MEROPENEM 1 G in IV NS 0.9% 100 ML IV SCH ×2 (09:13→20:21)
[2022-07-04] MEDS: BUPROPION XL 150 MG TAB.ER.24 PO SCH (09:15)
[2022-07-04] MEDS: CARVEDILOL 12.5 MG TABLET PO SCH ×2 (09:16→21:36)
[2022-07-04] MEDS: LOSARTAN POTASSIUM 50 MG TABLET PO SCH (09:17)
[2022-07-04] MEDS: VENLAFAXINE XR 150 MG CAP.SR.24H PO SCH (09:17)
[2022-07-04] MEDS: NIFEdipine XL (30MG) 30 MG TAB PO SCH (09:17)
[2022-07-04] MEDS: FERROUS SULFATE (325 MG) 325 MG/TAB TABLET PO SCH ×3 (09:18→16:57)
[2022-07-04] MEDS: DOCUSATE SODIUM 250 MG CAPSULE PO SCH (09:18)
[2022-07-04] MEDS: PANTOPRAZOLE 40 MG TABLET.DR PO SCH (09:18)
[2022-07-04] MEDS: APIXABAN 5 MG TABLET PO SCH ×2 (09:19→16:59)
[2022-07-04] MEDS: ASPIRIN 81 MG TAB.CHEW PO SCH (09:19)
[2022-07-04] MEDS: VIT B CMPLX 3/FA/VIT C/BIOTIN 1 TAB TABLET PO SCH (09:20)
[2022-07-04] MEDS: EMTRICITABINE PO SCH (09:21)
[2022-07-04] MEDS: DOLUTEGRAVIR SODIUM 50 MG PO SCH (09:21)
[2022-07-04] MEDS: POLYETHYLENE GLYCOL 3350 17 GM POWD.PACK PO SCH (09:21)
[2022-07-04] MEDS: TENOFOV ALAFENAM PO SCH (09:21)
[2022-07-04 11:08] LABS: BAND % (MANUAL) 2 % (0.0-5.0); EOSINOPHILS % (MANUAL) 5 % (0-4); LYMPHOCYTES % (MANUAL) 27 % (16-48); MONOCYTES % (MANUAL) 6 % (0-11.0); NEUTROPHILS % (MANUAL) 60 (42-76)
[2022-07-04] MEDS: EPOETIN ALFA-EPBX 10,000 UNIT/ML VIAL SQ SCH (15:00)
[2022-07-04 17:54] VITALS: BP 150/94
--- NOTE | 2022-07-04 19:35 | NUR ---
RN OPENING NOTE RECEIVED PATIENT IN BED; AWAKE, ALERT AND ORIENTED X 4; BLIND ON BOTH EYES. ABLE TO MAKE NEEDS KNOWN. ON ROOM AIR, TOLERATING WELL. NOT IN ANY FORM OF RESPIRATORY DISTRESS. WITH RIGHT UPPER ARM MIDLINE 18G; PATENT, INTACT AND SALINE LOCKED. WITH RIGHT CHEST WALL HD CATH; INTACT. WITH SHINE CATHETER IN PLACE DRAINING TO ARIANNE COLORED URINE VIA GRAVITY. SAFETY MEASURES IMPLEMENTED: CALL LIGHT AND TABLE WITHIN REACH, SIDE RAILS UP X 3, BED IN LOWEST LOCKED POSITION. WILL CONTINUE TO MONITOR.
[2022-07-04 20:33] VITALS: BP 139/92
[2022-07-04] MEDS: GABAPENTIN 300 MG CAPSULE PO SCH (21:36)
[2022-07-04] MEDS: MIRTAZAPINE 45 MG TABLET PO SCH (21:36)
[2022-07-04] MEDS: INSULIN GLARGINE, 100 UNIT/ML CARTRIDGE SQ SCH (22:00)
--- NOTE | 2022-07-04 22:01 | NUR ---
RN NOTE PATIENT REFUSED BLOOD SUGAR CHECKING AND LANTUS. PER PATIENT, THE DOCTOR MADE MISTAKE FOR THESE ORDERS.
--- NOTE | 2022-07-05 07:30 | NUR ---
RN CLOSING NOTE PATIENT IN BED; AWAKE, A/O X 4; BLIND ON BOTH EYES. STABLE ON ROOM AIR. IN NO ACUTE DISTRESS. WITH RIGHT UPPER ARM MIDLINE 18G; PATENT, INTACT AND SALINE LOCKED. WITH RIGHT CHEST WALL HD CATH; INTACT. WITH SHINE CATHETER IN PLACE DRAINING TO ARIANNE COLORED URINE VIA GRAVITY. SAFETY MEASURES MAINTAINED: CALL LIGHT AND TABLE WITHIN REACH, SIDE RAILS UP X 3, BED IN LOWEST LOCKED POSITION. ENDORSED TO MORNING SHIFT FOR BRYN.
[2022-07-05 07:55] LABS: CREATININE 2.7 mg/dL (0.6-1.3); MAGNESIUM 1.9 mg/dL (1.8-2.4); PHOSPHORUS 3.3 mg/dL (2.5-4.9); POTASSIUM 4.3 mmol/L (3.5-5.1)
[2022-07-05 08:00] VITALS: BP 156/96
[2022-07-05] MEDS: POLYETHYLENE GLYCOL 3350 17 GM POWD.PACK PO SCH (09:24)
[2022-07-05] MEDS: BUPROPION XL 150 MG TAB.ER.24 PO SCH (09:24)
[2022-07-05] MEDS: DOCUSATE SODIUM 250 MG CAPSULE PO SCH (09:25)
[2022-07-05] MEDS: VIT B CMPLX 3/FA/VIT C/BIOTIN 1 TAB TABLET PO SCH (09:25)
[2022-07-05] MEDS: NIFEdipine XL (30MG) 30 MG TAB PO SCH (09:25)
[2022-07-05] MEDS: FERROUS SULFATE (325 MG) 325 MG/TAB TABLET PO SCH ×3 (09:25→18:02)
[2022-07-05] MEDS: SENNOSIDES 8.6 MG TABLET PO SCH ×3 (09:25→18:02)
[2022-07-05] MEDS: PANTOPRAZOLE 40 MG TABLET.DR PO SCH (09:25)
[2022-07-05] MEDS: CARVEDILOL 12.5 MG TABLET PO SCH ×2 (09:26→22:08)
[2022-07-05] MEDS: VENLAFAXINE XR 150 MG CAP.SR.24H PO SCH (09:26)
[2022-07-05] MEDS: ASPIRIN 81 MG TAB.CHEW PO SCH (09:26)
[2022-07-05] MEDS: LOSARTAN POTASSIUM 50 MG TABLET PO SCH (09:27)
[2022-07-05] MEDS: DOLUTEGRAVIR SODIUM 50 MG PO SCH (09:27)
[2022-07-05] MEDS: EMTRICITABINE PO SCH (09:27)
[2022-07-05] MEDS: TENOFOV ALAFENAM PO SCH (09:27)
[2022-07-05] MEDS: DAKINS QUARTER STRENGTH (0.125%) 480 ML BOTTLE TOP SCH (09:28)
[2022-07-05] MEDS: MEROPENEM 1 G in IV NS 0.9% 100 ML IV SCH ×2 (09:29→21:07)
[2022-07-05] MEDS: APIXABAN 5 MG TABLET PO SCH ×2 (09:30→18:03)
[2022-07-05 09:31] LABS: BASOPHILS # (AUTO) 0.1 K/uL (0.0-0.2); BASOPHILS % (AUTO) 0.6 % (0.0-2.0); EOSINOPHILS % (AUTO) 4.4 % (0.0-6.0); HEMATOCRIT 25 % (39-51); HEMOGLOBIN 7.7 g/dL (13.5-17.5); LYMPHOCYTES # (AUTO) 4.1 K/uL (0.8-4.8); LYMPHOCYTES % (AUTO) 36.3 % (20.0-44.0); MEAN CORPUSCULAR HGB CONC 31 g/dl (31.0-36.0); MEAN CORPUSCULAR VOLUME 89 fL (80-96); MONOCYTES # (AUTO) 0.6 K/uL (0.1-1.30); MONOCYTES % (AUTO) 5.6 % (2.0-12.0); NEUTROPHILS % (AUTO) 53.1 % (43.0-81.0); PLATELET COUNT (AUTO) 612 K/uL (150-450); RED BLOOD CELL COUNT(AUTO) 2.79 MIL/uL (4.5-6.0); WHITE BLOOD COUNT (AUTO) 11.3 K/uL (4.3-11.0)
--- NOTE | 2022-07-05 19:30 | NUR ---
MS RN OPENING NOTES: RECEIVED PATIENT AWAKE IN BED , ACCOMPANIED BY FAMILY, BED IN LOW POSITION, CALL LIGHTS WITHIN REACH, NO COMPLAIN OF PAIN AND DISCOMFORT AT THIS TIME ON ROOM AIR AIR SATURATING WELL, PATIENT IS A/OX4 ABLE TO MAKE NEEDS KNOWN, WITH REYES PICC LINE, RCW PERMACATH, PATIENT IS A/OX4 ABLE TO MAKE NEEDS KNOWN, PATIENT KEPT CLEAN AND DRY ALL NEEDS MET WILL CONTINUE TO MONITOR.
[2022-07-05 20:00] VITALS: BP 147/94
[2022-07-05] MEDS: INSULIN GLARGINE, 100 UNIT/ML CARTRIDGE SQ SCH (22:00)
[2022-07-05] MEDS: MIRTAZAPINE 45 MG TABLET PO SCH (22:08)
[2022-07-05] MEDS: GABAPENTIN 300 MG CAPSULE PO SCH (22:08)
--- NOTE | 2022-07-05 22:52 | NUR ---
RN NOTES: PATIENT REFUSED BLOOD SUGAR CHECK, REFUSED ROUTINE HS INSULIN GLARGINE 5 UNIT EXPLAIN RISK AND BENEFITS PATIENT STATE " I DONT TAKE INSULIN" WILL CONTINUE TO MONITOR.
[2022-07-06] MEDS: ACETAMINOPHEN 325 MG TABLET PO PRN (06:00)
--- NOTE | 2022-07-06 06:41 | NUR ---
RN CLOSING NOTES; PATIENT SLEEP INBED COMFORTABLY, AROUSABLE TO VERBAL STIMULI, BED IN LOW POSITION, CALL LIGHTS WITHIN REACH, NO COMPLAIN OF PAIN AND DISCOMFORT AT THIS TIME ON O2 INHALATION AT 2LPM SATURATING WELL, PATIENT IS LEGALLY BLIND, PATIENT IS A/OX3-4 ABLE TO MAKE NEEDS KNOWN, ON HD WITH RCW PERMACATH, IV LINE AT REYES ML SL, KEPT CLEAN AND DRY ALL NEEDS MET WILL CONTINUE TO MONITOR
[2022-07-06 06:52] LABS: BASOPHILS # (AUTO) 0.1 K/uL (0.0-0.2); BASOPHILS % (AUTO) 0.8 % (0.0-2.0); EOSINOPHILS % (AUTO) 5.2 % (0.0-6.0); HEMATOCRIT 25 % (39-51); HEMOGLOBIN 7.7 g/dL (13.5-17.5); LYMPHOCYTES # (AUTO) 4.1 K/uL (0.8-4.8); LYMPHOCYTES % (AUTO) 34.8 % (20.0-44.0); MEAN CORPUSCULAR HGB CONC 31 g/dl (31.0-36.0); MEAN CORPUSCULAR VOLUME 89 fL (80-96); MONOCYTES # (AUTO) 0.6 K/uL (0.1-1.30); MONOCYTES % (AUTO) 5.3 % (2.0-12.0); NEUTROPHILS # (AUTO) 6.3 K/uL (1.8-8.9); NEUTROPHILS % (AUTO) 53.9 % (43.0-81.0); PLATELET COUNT (AUTO) 612 K/uL (150-450); RED BLOOD CELL COUNT(AUTO) 2.82 MIL/uL (4.5-6.0); WHITE BLOOD COUNT (AUTO) 11.7 K/uL (4.3-11.0)
--- NOTE | 2022-07-06 07:20 | NUR ---
MS RN OPENING NOTES RECEIVED PATIENT AWAKE IN BED , ACCOMPANIED BY FAMILY, BED IN LOW POSITION, CALL LIGHTS WITHIN REACH, NO COMPLAIN OF PAIN AND DISCOMFORT AT THIS TIME ON ROOM AIR AIR SATURATING WELL, PATIENT IS A/OX4 ABLE TO MAKE NEEDS KNOWN, WITH REYES PICC LINE, RCW PERMACATH, ON MODERATE TO HIGH BACK REST. IN STABLE CONDITION. SAFETY MEASURES IN PLACE WITH BED IN LOCKED AND LOWEST POSITION. CALL LIGHT WITHIN REACH AT ALL TIMES. IN STABLE CONDITION. WILL CONTINUE WITH PLAN OF CARE.
[2022-07-06 07:26] LABS: CALCIUM, SERUM 9.1 mg/dL (8.5-10.1); CREATININE 2.9 mg/dL (0.6-1.3); MAGNESIUM 1.8 mg/dL (1.8-2.4); PHOSPHORUS 3.7 mg/dL (2.5-4.9); POTASSIUM 4.4 mmol/L (3.5-5.1)
[2022-07-06] MEDS: PANTOPRAZOLE 40 MG TABLET.DR PO SCH (08:00)
[2022-07-06 08:43] VITALS: BP 162/98
[2022-07-06] MEDS: DOCUSATE SODIUM 250 MG CAPSULE PO SCH ×3 (09:00→09:55)
[2022-07-06] MEDS: POLYETHYLENE GLYCOL 3350 17 GM POWD.PACK PO SCH ×3 (09:00→09:56)
[2022-07-06 09:07] LABS: *BASOS 0 % (Not Estab.); *BASOS, ABSOLUTE 0.1 x10E3/uL (0.0-0.2); *EOS 4 % (Not Estab.); *EOS, ABSOLUTE 0.7 x10E3/uL (0.0-0.4); *HCT 13.9 % (37.5-51.0); *HGB 4.2 g/dL (13.0-17.7); *IMMATURE GRANULOCYTES 0 % (Not Estab.); *LYMPHOCYTES 38 % (Not Estab.); *LYMPHS, ABSOLUTE 5.9 x10E3/uL (0.7-3.1); *MCH 27.5 pg (26.6-33.0); *MCHC 30.2 g/dL (31.5-35.7); *MCV 91 fL (79-97); *MONOCYTES 6 % (Not Estab.); *MONOS, ABSOLUTE 0.9 x10E3/uL (0.1-0.9); *NEUTROPHILS 52 % (Not Estab.); *NEUTROPHILS, ABSOLUTE 7.9 x10E3/uL (1.4-7.0); *PLT 767 x10E3/uL (150-450); *RBC 1.53 x10E6/uL (4.14-5.80); *RDW 17.8 % (11.6-15.4)
[2022-07-06] MEDS: SENNOSIDES 8.6 MG TABLET PO SCH ×3 (09:33→17:00)
[2022-07-06] MEDS: VIT B CMPLX 3/FA/VIT C/BIOTIN 1 TAB TABLET PO SCH (09:33)
[2022-07-06] MEDS: FERROUS SULFATE (325 MG) 325 MG/TAB TABLET PO SCH ×3 (09:34→17:22)
[2022-07-06] MEDS: LOSARTAN POTASSIUM 50 MG TABLET PO SCH (09:34)
[2022-07-06] MEDS: ASPIRIN 81 MG TAB.CHEW PO SCH (09:34)
[2022-07-06] MEDS: CARVEDILOL 12.5 MG TABLET PO SCH ×2 (09:35→21:38)
[2022-07-06] MEDS: VENLAFAXINE XR 150 MG CAP.SR.24H PO SCH (09:35)
[2022-07-06] MEDS: BUPROPION XL 150 MG TAB.ER.24 PO SCH (09:35)
[2022-07-06] MEDS: APIXABAN 5 MG TABLET PO SCH ×2 (09:36→17:22)
[2022-07-06] MEDS: NIFEdipine XL (30MG) 30 MG TAB PO SCH (09:39)
[2022-07-06] MEDS: DOLUTEGRAVIR SODIUM 50 MG PO SCH (09:43)
[2022-07-06] MEDS: EMTRICITABINE PO SCH (09:43)
[2022-07-06] MEDS: TENOFOV ALAFENAM PO SCH (09:43)
[2022-07-06] MEDS: DAKINS QUARTER STRENGTH (0.125%) 480 ML BOTTLE TOP SCH (09:44)
[2022-07-06 12:06] LABS: *% CD 4 POS. LYMPH 30.5 % (30.8-58.5); *% CD 8 POS. LYMPH 60.5 % (12.0-35.5); *ABSOLUTE CD 4 HELPER 1800 /uL (359-1519); *ABSOLUTE CD 8 SUPPRESSOR 3570 /uL (109-897)
[2022-07-06 16:19] VITALS: BP 112/82
[2022-07-06 16:21] VITALS: BP 128/92
[2022-07-06] MEDS: EPOETIN ALFA-EPBX 10,000 UNIT/ML VIAL SQ SCH (17:06)
--- NOTE | 2022-07-06 19:00 | NUR ---
MS RN CLOSING NOTES PATIENT AWAKE IN BED , ACCOMPANIED BY FAMILY, BED IN LOW POSITION, CALL LIGHTS WITHIN REACH, NO COMPLAIN OF PAIN AND DISCOMFORT AT THIS TIME ON ROOM AIR AIR SATURATING WELL, PATIENT IS A/OX4 ABLE TO MAKE NEEDS KNOWN, WITH REYES PICC LINE, RCW PERMACATH, ON MODERATE TO HIGH BACK REST. IN STABLE CONDITION. SAFETY MEASURES IN PLACE WITH BED IN LOCKED AND LOWEST POSITION. CALL LIGHT WITHIN REACH AT ALL TIMES. IN STABLE CONDITION. ENDORSED TO NEXT SHIFT FOR CONTINUITY OF CARE.
--- NOTE | 2022-07-06 19:46 | NUR ---
RN OPENING NOTES: RECEIVED PATIENT AWAKE IN BED, BE DIN LOW POSITION CALL LIGHTS WITHIN REACH, NO COMPLAIN OF PAIN AND DISCOMFORT AT THIS TIME, ON O2 INHALATION AT 2LPM SATURATING WELL, PATIENT IS A/OX4 ON BED REST, LEGALLY BLIND, ABLE TO MAKE NEEDS KNOWN ON HD AT [facility] WITH 2LTR OUT TODAY, PATIENT KEPT CLEAN AND DRY ALL NEEDS MET WILL CONTINUE TO MONITOR.
[2022-07-06 20:00] VITALS: BP 177/117
--- NOTE | 2022-07-06 21:30 | NUR ---
RN NOTES; PATIENT REFUSED ROUTINE INSULINE GLARGINE 5 UNITS, EXPLAIN RISK AND BENEFITS PATIENT STILL REFUSED WILL CONTINUE TO MONITOR
[2022-07-06] MEDS: MIRTAZAPINE 45 MG TABLET PO SCH (21:38)
[2022-07-06] MEDS: GABAPENTIN 300 MG CAPSULE PO SCH (21:38)
[2022-07-06] MEDS: INSULIN GLARGINE, 100 UNIT/ML CARTRIDGE SQ SCH (22:00)
[2022-07-07] MEDS: ACETAMINOPHEN 325 MG TABLET PO PRN (00:23)
--- NOTE | 2022-07-07 06:18 | NUR ---
RN CLOSING NOTES; PATIENT SLEEP IN BED COMFORTABLY, AROUSABLE TO VERBAL STIMULI, BED IN LOW POSITION CALL LIGHTS WITHIN REACH, NO COMPLAIN OF PAIN AND DISCOMFORT AT THIS TIME, ON O2 INHALTION AT 2LPM SATURATING WELL, PATIENT IS A/OX3-4 ABLE TO MAKE NEEDS KNOWN, PATIENT KEPT CLEAN AND DRY ALL NEEDS MET ENDORSE TO INCOMING SHIFT.
[2022-07-07 06:29] LABS: BASOPHILS # (AUTO) 0.1 K/uL (0.0-0.2); BASOPHILS % (AUTO) 0.6 % (0.0-2.0); HEMATOCRIT 24 % (39-51); HEMOGLOBIN 7.2 g/dL (13.5-17.5); LYMPHOCYTES # (AUTO) 4.5 K/uL (0.8-4.8); LYMPHOCYTES % (AUTO) 26.4 % (20.0-44.0); MEAN CORPUSCULAR HGB CONC 30 g/dl (31.0-36.0); MEAN CORPUSCULAR VOLUME 89 fL (80-96); MONOCYTES % (AUTO) 6.2 % (2.0-12.0); NEUTROPHILS # (AUTO) 10.8 K/uL (1.8-8.9); NEUTROPHILS % (AUTO) 63.8 % (43.0-81.0); PLATELET COUNT (AUTO) 585 K/uL (150-450); RED BLOOD CELL COUNT(AUTO) 2.65 MIL/uL (4.5-6.0); WHITE BLOOD COUNT (AUTO) 16.9 K/uL (4.3-11.0)
[2022-07-07 07:02] LABS: CALCIUM, SERUM 8.7 mg/dL (8.5-10.1); CREATININE 2.4 mg/dL (0.6-1.3); MAGNESIUM 1.9 mg/dL (1.8-2.4); PHOSPHORUS 2.5 mg/dL (2.5-4.9); POTASSIUM 3.9 mmol/L (3.5-5.1)
--- NOTE | 2022-07-07 07:25 | NUR ---
MS RN OPENING NOTES PATIENT LAYING IN BED, A/O X 3, ABLE TO MAKE NEEDS KNOWN, TOLERATING WELL ON ROOM AIR WITH NO S/S RESPIRATORY DISTRESS. TOLERATING WELL ON 2 LPM O2 VIA NASAL CANNULA. REYES PICC IN PLACE CLEAN, INTACT, AND FLUSHING WELL. RCW PERMACATH IN PLACE CLEAN AND INTACT. SAFETY MEASURES IN PLACE: BED IN LOWEST LOCKED POSITION, SIDE RAILS UP X 2, CALL LIGHT WITHIN REACH. WILL CONTINUE TO MONITOR.
[2022-07-07 08:00] VITALS: BP 182/107
[2022-07-07] MEDS: oxyCODONE IR immediate release 5 MG PO PRN ×2 (08:00→21:03)
[2022-07-07] MEDS: PANTOPRAZOLE 40 MG TABLET.DR PO SCH (08:00)
[2022-07-07] MEDS: LOSARTAN POTASSIUM 50 MG TABLET PO SCH (08:16)
[2022-07-07] MEDS: FERROUS SULFATE (325 MG) 325 MG/TAB TABLET PO SCH ×3 (08:16→17:04)
[2022-07-07] MEDS: SENNOSIDES 8.6 MG TABLET PO SCH ×5 (08:17→17:00)
[2022-07-07] MEDS: VIT B CMPLX 3/FA/VIT C/BIOTIN 1 TAB TABLET PO SCH (08:17)
[2022-07-07] MEDS: NIFEdipine XL (30MG) 30 MG TAB PO SCH (08:17)
[2022-07-07] MEDS: BUPROPION XL 150 MG TAB.ER.24 PO SCH (08:17)
[2022-07-07] MEDS: ASPIRIN 81 MG TAB.CHEW PO SCH (08:18)
[2022-07-07] MEDS: CARVEDILOL 12.5 MG TABLET PO SCH ×2 (08:18→21:00)
[2022-07-07] MEDS: VENLAFAXINE XR 150 MG CAP.SR.24H PO SCH (08:18)
[2022-07-07] MEDS: POLYETHYLENE GLYCOL 3350 17 GM POWD.PACK PO SCH ×2 (08:18→08:35)
[2022-07-07] MEDS: DOCUSATE SODIUM 250 MG CAPSULE PO SCH ×2 (08:20→08:34)
[2022-07-07] MEDS: TENOFOV ALAFENAM PO SCH (08:20)
[2022-07-07] MEDS: EMTRICITABINE PO SCH (08:20)
[2022-07-07] MEDS: APIXABAN 5 MG TABLET PO SCH ×2 (08:20→17:04)
[2022-07-07] MEDS: DAKINS QUARTER STRENGTH (0.125%) 480 ML BOTTLE TOP SCH (08:33)
[2022-07-07] MEDS: DOLUTEGRAVIR SODIUM 50 MG PO SCH (08:42)
--- NOTE | 2022-07-07 16:08 | NUR ---
MS TAVERA NOTES PATIENT STATED HE DOES NOT WANT TO BE CLEANED OR CHANGED UNTIL NEXT SHIFT. LUZ WEEMS WITNESSED PATIENT STATEMENT. Addendum: 07/07/22 at 1733 by UMA PRIEST RN PATIENT REFUSED CLEANING AND WOUND CARE/DOCUMENTATION/MEASURING DURING SHIFT. RISKS OF NOT CLEANING PATIENT AND NOT PERFORMING WOUND CARE, INCLUDING WOUND DOCUMENTATION, MEASURING, AND DRESSING CHANGE, WERE EXPLAINED X 3. BENEFITS OF CLEANING AND PERFORMING WOUND CARE, INCLUDING WOUND DOCUMENTATION, MEASURING, AND DRESSING CHANGE, WERE ALSO EXPLAINED X 3. PATIENT AGAIN REFUSED CLEANING AND WOUND CARE/WOUND DOCUMENTATION/WOUND MEASURING DURING SHIFT. WILL ENDORSE TO ONCOMING SHIFT.
--- NOTE | 2022-07-07 19:02 | NUR ---
MS RN CLOSING NOTES PATIENT LAYING IN BED, A/O X 3, ABLE TO MAKE NEEDS KNOWN, TOLERATING WELL ON ROOM AIR WITH NO S/S RESPIRATORY DISTRESS. TOLERATING WELL ON 2 LPM O2 VIA NASAL CANNULA. REYES PICC IN PLACE CLEAN, INTACT, AND FLUSHING WELL. RCW PERMACATH IN PLACE CLEAN AND INTACT. SAFETY MEASURES IN PLACE: BED IN LOWEST LOCKED POSITION, SIDE RAILS UP X 2, CALL LIGHT WITHIN REACH. PATIENT REFUSED WOUND CARE AND DOCUMENTATION DURING SHIFT, SEE NOTE. ALL NEEDS MET. PATIENT TURNED Q2H. WILL ENDORSE TO ROOM INSPECTOR FOR BRYN.
--- NOTE | 2022-07-07 19:30 | NUR ---
MS RN OPENING NOTE RECEIVED PT AWAKE IN BED. A/O X4 AND ABLE TO MAKE NEEDS KNOWN. PT STABLE ON ROOM AIR. NO SOB OR S/S OF RESPIRATORY DISTRESS. BREATHING EVEN AND UNLABORED. IV ACCESS REYES PICC SL, INTACT AND PATENT. WITH SHINE DRAINING URINE BY GRAVITY. SAFETY PRECAUTIONS IN PLACE. BED IN LOWEST LOCKED POSITION, HOB ELEVATED, SIDE RAILS UP X3, AND CALL LIGHT AND TABLE WITHIN REACH. ALL NEEDS MET AT THIS TIME.
[2022-07-07 20:00] VITALS: BP 105/66
[2022-07-07] MEDS: GABAPENTIN 300 MG CAPSULE PO SCH (21:02)
[2022-07-07] MEDS: INSULIN GLARGINE, 100 UNIT/ML CARTRIDGE SQ SCH (21:03)
[2022-07-07] MEDS: MIRTAZAPINE 45 MG TABLET PO SCH (21:03)
--- NOTE | 2022-07-07 21:04 | NUR ---
RN NOTE PT COMPLAINED OF PAIN 8/10 OF LOWER BACK. ADMINISTERED OXY IR 5 MG FOR SEVERE PAIN ORDERED. PT ALSO REFUSED TO TAKE COREG, INSULIN, AND REMERON. EXPLAINED IMPORTANCE OF MEDICATION COMPLIANCE. PT VERBALIZED UNDERSTANDING BUT STILL REFUSED THOSE MEDICATIONS. MADE COMFORTABLE IN BED. ALL NEEDS MET AT THIS TIME. CHARGE NURSE CHRISTAL STOVER.
--- NOTE | 2022-07-08 06:46 | NUR ---
MS RN CLOSING NOTE PT AWAKE IN BED. A/O X4 AND ABLE TO MAKE NEEDS KNOWN. PT STABLE ON ROOM AIR. NO SOB OR S/S OF RESPIRATORY DISTRESS. BREATHING EVEN AND UNLABORED. IV ACCESS REYES PICC SL, INTACT AND PATENT. WITH SHINE DRAINING URINE BY GRAVITY, DRAINED 400 CC THIS SHIFT. KEPT CLEAN AND DRY. ALL DUE MEDS GIVEN ORDERED. WOUND CARE RENDERED. SAFETY PRECAUTIONS IN PLACE AT ALL TIMES. BED IN LOWEST LOCKED POSITION, HOB ELEVATED, SIDE RAILS UP X3, AND CALL LIGHT AND TABLE WITHIN REACH. ALL NEEDS MET AT THIS TIME AND WILL ENDORSE TO ONCOMING NURSE FOR BRYN.
[2022-07-08 07:00] VITALS: BP 158/101
--- NOTE | 2022-07-08 07:00 | NUR ---
MS RN OPENING NOTES PATIENT LAYING IN BED, A/O X 4, ABLE TO MAKE NEEDS KNOWN, TOLERATING WELL ON ROOM AIR WITH NO S/S RESPIRATORY DISTRESS. NO COMPLAINTS OF PAIN OR DISCOMFORT AT THIS TIME. REYES PICC SL CLEAN, INTACT, FLUSHING WELL. SHINE CATHETER DRAINING CLEAR YELLOW URINE TO GRAVITY. SAFETY MEASURES IN PLACE: BED IN LOWEST LOCKED POSITION, SIDE RAILS UP X 2, CALL LIGHT WITHIN REACH. WILL CONTINUE TO MONITOR.
[2022-07-08] MEDS: PANTOPRAZOLE 40 MG TABLET.DR PO SCH (07:55)
[2022-07-08] MEDS: VENLAFAXINE XR 150 MG CAP.SR.24H PO SCH ×2 (08:37→12:15)
[2022-07-08] MEDS: NIFEdipine XL (30MG) 30 MG TAB PO SCH ×3 (08:37→12:16)
[2022-07-08] MEDS: LOSARTAN POTASSIUM 50 MG TABLET PO SCH ×3 (08:37→12:16)
[2022-07-08] MEDS: FERROUS SULFATE (325 MG) 325 MG/TAB TABLET PO SCH ×4 (08:38→16:08)
[2022-07-08] MEDS: CARVEDILOL 12.5 MG TABLET PO SCH ×4 (08:38→21:00)
[2022-07-08] MEDS: VIT B CMPLX 3/FA/VIT C/BIOTIN 1 TAB TABLET PO SCH ×2 (08:38→12:14)
[2022-07-08] MEDS: BUPROPION XL 150 MG TAB.ER.24 PO SCH ×2 (08:38→12:14)
[2022-07-08] MEDS: ASPIRIN 81 MG TAB.CHEW PO SCH ×2 (08:38→12:14)
[2022-07-08] MEDS: APIXABAN 5 MG TABLET PO SCH ×2 (08:39→16:10)
[2022-07-08] MEDS: SENNOSIDES 8.6 MG TABLET PO SCH ×3 (08:40→16:18)
[2022-07-08] MEDS: POLYETHYLENE GLYCOL 3350 17 GM POWD.PACK PO SCH (08:40)
[2022-07-08] MEDS: DOCUSATE SODIUM 250 MG CAPSULE PO SCH (08:40)
[2022-07-08] MEDS: DAKINS QUARTER STRENGTH (0.125%) 480 ML BOTTLE TOP SCH (08:41)
[2022-07-08 09:51] LABS: BASOPHILS # (AUTO) 0.1 K/uL (0.0-0.2); BASOPHILS % (AUTO) 0.6 % (0.0-2.0); HEMATOCRIT 24 % (39-51); HEMOGLOBIN 7.4 g/dL (13.5-17.5); LYMPHOCYTES # (AUTO) 3.7 K/uL (0.8-4.8); LYMPHOCYTES % (AUTO) 28.1 % (20.0-44.0); MEAN CORPUSCULAR HGB CONC 31 g/dl (31.0-36.0); MEAN CORPUSCULAR VOLUME 89 fL (80-96); MONOCYTES # (AUTO) 0.8 K/uL (0.1-1.30); MONOCYTES % (AUTO) 5.9 % (2.0-12.0); NEUTROPHILS # (AUTO) 8.2 K/uL (1.8-8.9); NEUTROPHILS % (AUTO) 62.4 % (43.0-81.0); PLATELET COUNT (AUTO) 544 K/uL (150-450); RED BLOOD CELL COUNT(AUTO) 2.68 MIL/uL (4.5-6.0); WHITE BLOOD COUNT (AUTO) 13.2 K/uL (4.3-11.0)
[2022-07-08 10:09] LABS: CALCIUM, SERUM 8.1 mg/dL (8.5-10.1); CREATININE 2.2 mg/dL (0.6-1.3); MAGNESIUM 1.7 mg/dL (1.8-2.4); PHOSPHORUS 2.2 mg/dL (2.5-4.9); POTASSIUM 3.3 mmol/L (3.5-5.1)
--- NOTE | 2022-07-08 11:46 | NUR ---
MS RN NOTES PATIENT AM MEDS ADMINISTRATION DELAYED DUE TO HEMODIALYSIS
[2022-07-08] MEDS: ODEFSEY PO SCH (12:14)
[2022-07-08 16:00] VITALS: BP 182/120
[2022-07-08] MEDS: EPOETIN ALFA-EPBX 10,000 UNIT/ML VIAL SQ SCH (16:07)
[2022-07-08] MEDS: hydrALAZINE HCL IV 20 MG VIAL IV PRN (16:16)
[2022-07-08] MEDS: oxyCODONE IR immediate release 5 MG PO PRN (16:35)
--- NOTE | 2022-07-08 18:00 | NUR ---
MS RN NOTES SACRAL WOUND MEASURED LENGTH 4 CM, HEIGHT 6 CM, 4 CM UNDERMINING AT 6 PM
--- NOTE | 2022-07-08 18:50 | NUR ---
MS RN CLOSING NOTES PATIENT LAYING IN BED, A/O X 4, ABLE TO MAKE NEEDS KNOWN, TOLERATING WELL ON ROOM AIR WITH NO S/S RESPIRATORY DISTRESS. NO COMPLAINTS OF PAIN OR DISCOMFORT AT THIS TIME. REYES PICC SL CLEAN, INTACT, FLUSHING WELL. SHINE CATHETER DRAINING CLEAR YELLOW URINE TO GRAVITY. SAFETY MEASURES IN PLACE: BED IN LOWEST LOCKED POSITION, SIDE RAILS UP X 2, CALL LIGHT WITHIN REACH. ALL NEEDS MET. PATIENT TURNED Q2H. WILL ENDORSE TO OUTDOOR EMERGENCY CARE TECHNICIAN FOR BRYN.
[2022-07-08] MEDS: ACETAMINOPHEN 325 MG TABLET PO PRN (19:55)
[2022-07-08] MEDS: INSULIN GLARGINE, 100 UNIT/ML CARTRIDGE SQ SCH (21:49)
[2022-07-08] MEDS: MIRTAZAPINE 45 MG TABLET PO SCH (21:49)
[2022-07-08] MEDS: GABAPENTIN 300 MG CAPSULE PO SCH (21:49)
--- NOTE | 2022-07-08 21:53 | NUR ---
RN NOTE PT REFUSING ALL MEDS AT THIS TIME. PT STATED HE WANTS A PSYCH CONSULT TO GO OVER HIS CURRENT PSYCH MEDICATIONS. HELD MEDICATIONS DUE TO PT REFUSAL, EDUCATED PT ON COMPLIANCE WITH MEDICATIONS, VERBALIZED UNDERSTANDING AND STILL REFUSED. CHARGE NURSE CHRISTAL STOVER.
--- NOTE | 2022-07-09 06:45 | NUR ---
MS RN CLOSING NOTE PT AWAKE IN BED. A/O X4 AND ABLE TO MAKE NEEDS KNOWN. PT STABLE ON ROOM AIR. NO SOB OR S/S OF RESPIRATORY DISTRESS. BREATHING EVEN AND UNLABORED. IV ACCESS REYES PICC SL, INTACT AND PATENT. WITH SHINE DRAINING URINE BY GRAVITY, DRAINED 800 CC THIS SHIFT. KEPT CLEAN AND DRY. ALL DUE MEDS GIVEN ORDERED. WOUND CARE RENDERED. SAFETY PRECAUTIONS IN PLACE AT ALL TIMES. BED IN LOWEST LOCKED POSITION, HOB ELEVATED, SIDE RAILS UP X3, AND CALL LIGHT AND TABLE WITHIN REACH. ALL NEEDS MET AT THIS TIME AND WILL ENDORSE TO ONCOMING NURSE FOR BRYN.
[2022-07-09 07:00] VITALS: BP 157/97
--- NOTE | 2022-07-09 07:58 | NUR ---
MS RN OPENING NOTE Patient in bed, awake. A/O x 4, able to make needs known. Patient is blind on both eyes. On room air, breathing evenly and unlabored. No SOB or s/s of distress noted. IV access on REYES PICC line SL, intact and patent. RCW permacath noted. Dejesus catheter in place draining to an guilherme colored urine. Safety precautions iin place: bed in low, locked position; siderails up x2; call light within reach. Will continue to monitor.
[2022-07-09] MEDS: PANTOPRAZOLE 40 MG TABLET.DR PO SCH (08:40)
[2022-07-09] MEDS: BUPROPION XL 150 MG TAB.ER.24 PO SCH (08:42)
[2022-07-09] MEDS: LOSARTAN POTASSIUM 50 MG TABLET PO SCH (08:42)
[2022-07-09] MEDS: FERROUS SULFATE (325 MG) 325 MG/TAB TABLET PO SCH ×4 (08:43→16:52)
[2022-07-09] MEDS: VIT B CMPLX 3/FA/VIT C/BIOTIN 1 TAB TABLET PO SCH (08:43)
[2022-07-09] MEDS: CARVEDILOL 12.5 MG TABLET PO SCH (08:43)
[2022-07-09] MEDS: ASPIRIN 81 MG TAB.CHEW PO SCH (08:44)
[2022-07-09] MEDS: POLYETHYLENE GLYCOL 3350 17 GM POWD.PACK PO SCH (08:44)
[2022-07-09] MEDS: NIFEdipine XL (30MG) 30 MG TAB PO SCH (08:44)
[2022-07-09] MEDS: DOCUSATE SODIUM 250 MG CAPSULE PO SCH (08:44)
[2022-07-09] MEDS: VENLAFAXINE XR 150 MG CAP.SR.24H PO SCH (08:44)
[2022-07-09] MEDS: SENNOSIDES 8.6 MG TABLET PO SCH ×3 (08:44→16:52)
[2022-07-09] MEDS: ODEFSEY PO SCH (08:45)
[2022-07-09] MEDS: APIXABAN 5 MG TABLET PO SCH ×2 (08:48→16:52)
[2022-07-09] MEDS: DAKINS QUARTER STRENGTH (0.125%) 480 ML BOTTLE TOP SCH (08:51)
--- NOTE | 2022-07-09 14:50 | NUR ---
RN NOTE [facility], no answer. Will try again later.
--- NOTE | 2022-07-09 15:30 | NUR ---
RN NOTE [facility] no answer. Will try again later.
[2022-07-09 16:00] VITALS: BP 128/83
--- NOTE | 2022-07-09 17:30 | NUR ---
DISCHARGE NOTE Received order for discharge. Patient is A/O x 4, able to make needs known. Stable on room air, no SOB or s/s of distress noted. Report called to Ora Martínez RN of [facility]. Discharge instructions given, patient verbalized understanding. All belongings accounted for. IV access removed, catheter tip intact. Pressure dressing applied. Patient left in stable condition via ambulance with 2 stem teacher present.
== END 2022-07-09 18:03 | DRG 380 ==
LOC: ER 15:48 → MED 21:12
PROVIDERS: ADMIT Nurse Practitioner Acute Care; ATTEND Student in an Organized Health Care Education/Training Program
PROC: 02HV33Z Insertion of Infusion Device into Superior Vena Cava, Percutaneous Approach (ICD-10-PCS; 2022-06-20)
PROC: B548ZZA Ultrasonography of Superior Vena Cava, Guidance (ICD-10-PCS; 2022-06-20)
PROC: 5A1D70Z Performance of Urinary Filtration, Intermittent, Less than 6 Hours Per Day (ICD-10-PCS; principal; 2022-06-22)
DX: L89.154 Pressure ulcer of sacral region, stage 4 (principal); D68.59 Other primary thrombophilia; I12.0 Hypertensive chronic kidney disease with stage 5 chronic kidney disease or end stage renal disease; R53.2 Functional quadriplegia; N18.6 End stage renal disease; E11.22 Type 2 diabetes mellitus with diabetic chronic kidney disease; D63.8 Anemia in other chronic diseases classified elsewhere; L89.619 Pressure ulcer of right heel, unspecified stage; N39.0 Urinary tract infection, site not specified; Z99.2 Dependence on renal dialysis; Z20.822 Contact with and (suspected) exposure to COVID-19; Z91.15 Patient's noncompliance with renal dialysis; Z91.199 Patient's noncompliance with other medical treatment and regimen due to unspecified reason; Z79.4 Long term (current) use of insulin; Z79.82 Long term (current) use of aspirin; Z79.899 Other long term (current) drug therapy; Z79.01 Long term (current) use of anticoagulants; Z86.69 Personal history of other diseases of the nervous system and sense organs; H54.3 Unqualified visual loss, both eyes; I69.365 Other paralytic syndrome following cerebral infarction, bilateral; K21.9 Gastro-esophageal reflux disease without esophagitis; Z74.01 Bed confinement status; L89.629 Pressure ulcer of left heel, unspecified stage; M89.8X9 Other specified disorders of bone, unspecified site; B96.1 Klebsiella pneumoniae [K. pneumoniae] as the cause of diseases classified elsewhere; Z16.12 Extended spectrum beta lactamase (ESBL) resistance; B96.4 Proteus (mirabilis) (morganii) as the cause of diseases classified elsewhere; E87.6 Hypokalemia
CPT/HCPCS: 36410; 36415; 71045-TC; 80048-TC; 80053-TC; 80061-TC; 80076-TC; 80202-TC; 81001; 82962-TC; 83540-TC; 83605-TC; 83735-TC; 84100-TC; 84484-TC; 85025-TC; 85027-TC; 85652-TC; 85730-TC; 86140-TC; 86360; 86706; 87040-TC; 87081-TC; 87086-TC; 87340; 87536; 90935-TC; 97530-TC; 97535-TC; A4217; A6253; A6403; A9563; C9803; G0378; J0360; J0885; J1815; J2185; J2405; J2543; J3370; J7030; J7040; J7050; J7060

== ENCOUNTER 2022-07-25 11:16 | Inpatient (IN) | payer MEDICAID ==
[~2022-07-25] VITALS: Ht 172.7 cm; Wt 86.2 kg
[~2022-07-25 11:16] MED LIST: ACET-868 PO; AMIN30LI2 PO; APIX5TAB PO; ASPI-1169 PO; BISA10SU11 RC; BUPR-54 PO; CARV25TA2 PO; CLON0.1T PO; COLL30OI TP; CRAN425C6 PO; CYCL5TAB PO; DOCU250C14 PO; DOLU50TA PO; EMTR1TAB17 PO; EPOE1VIA6 SQ; FERR325T23 PO; FOLI0.8T2 PO; GABA-532 PO; HONE15GE TP; HYDR50TA61 PO; INSU100V39 SQ; INSU100V7 SQ; LORA-258 PO; LOSA100T31 PO; MAGN400O6 PO; MIRT45TA83 PO; MORP15TA10 PO; NALO4SPR; NIFE90TA2 PO; OMEP20CA15 PO; ONDA4TAB5 PO; OXYC5TAB3 PO; POLY15DR40 EACHEYE; POLY17PO4 PO; SENN-261 PO; TEST200V3 IM; TRAM50TA2 PO; VENL150C58 PO; ZOLP5TAB8 PO
--- NOTE | 2022-07-25 11:22 | NUR ---
PT CARA BELL FROM [facility]. PT STATES HE REFUSED DIALYSIS FROM [facility] BECAUSE HE "DOES NOT LIKE THE PLACE". PT IS AA0X4, PLACED IN BED AND GAS CHECK PAD MAKER. DENIES ANY PAIN, BREATHING EVEN AND UNLABORED. VSS. AWAITING MD ORDERS.
[2022-07-25 11:52] LABS: BASOPHILS % (AUTO) 0.2 % (0.0-2.0); EOSINOPHILS % (AUTO) 1.8 % (0.0-6.0); HEMATOCRIT 31 % (39-51); HEMOGLOBIN 9.7 g/dL (13.5-17.5); LYMPHOCYTES # (AUTO) 3.5 K/uL (0.8-4.8); LYMPHOCYTES % (AUTO) 21.3 % (20.0-44.0); MEAN CORPUSCULAR HGB CONC 31 g/dl (31.0-36.0); MEAN CORPUSCULAR VOLUME 85 fL (80-96); MONOCYTES # (AUTO) 1.3 K/uL (0.1-1.30); MONOCYTES % (AUTO) 7.7 % (2.0-12.0); NEUTROPHILS # (AUTO) 11.2 K/uL (1.8-8.9); PLATELET COUNT (AUTO) 534 K/uL (150-450); WHITE BLOOD COUNT (AUTO) 16.3 K/uL (4.3-11.0)
[2022-07-25] MEDS ORDERED: CLON0.1T PO (11:56)
--- NOTE | 2022-07-25 12:03 | NUR ---
COVID SWAB COLLECTED AND SENT TO LAB
[2022-07-25 12:22] LABS: CALCIUM, SERUM 7.3 mg/dL (8.5-10.1); CREATININE 6.3 mg/dL (0.6-1.3); POTASSIUM 3.5 mmol/L (3.5-5.1)
[2022-07-25] MEDS ORDERED: MAGNESIUM HYDROXIDE 30 ML UDC PO PRN (13:30)
[2022-07-25] MEDS ORDERED: LORAZEPAM 0.5 MG TABLET PO PRN ×2 (13:30)
[2022-07-25] MEDS ORDERED: ONDANSETRON HCL/PF 4 MG/2 ML VIAL IVP PRN (13:30)
[2022-07-25] MEDS ORDERED: ACETAMINOPHEN 325 MG TABLET PO PRN (13:30)
[2022-07-25] MEDS ORDERED: Z GUARD REMEDY 4 OZ OINT TP PRN (13:30)
[2022-07-25] MEDS ORDERED: TRAMADOL HCL 50 MG TABLET PO PRN (13:30)
[2022-07-25] MEDS ORDERED: BISACODYL SUPP (10 MG) 10 MG/SUPP.RECT SUPP.RECT RC PRN (13:30)
[2022-07-25] MEDS ORDERED: ZOLPIDEM TARTRATE 5 MG TABLET PO PRN (13:30)
--- NOTE | 2022-07-25 13:30 | NUR ---
X-RAY AT BEDSIDE.
[2022-07-25] MEDS ORDERED: hydrOXYzine PAMOATE 25 MG CAPSULE PO PRN (14:00)
[2022-07-25] MEDS ORDERED: INSULIN REGULAR, HUMAN 100 UNIT/ML 3 ML VIAL SQ PRN (14:00)
[2022-07-25] MEDS ORDERED: oxyCODONE IR immediate release 5 MG PO PRN (14:00)
[2022-07-25] MEDS ORDERED: DEXTROSE 50%-WATER 50 ML DISP.SYRIN IV PRN (14:00)
[2022-07-25] MEDS ORDERED: CYCLOBENZAPRINE 10 MG TABLET PO PRN (14:00)
[2022-07-25] MEDS ORDERED: POLYVINYL ALCOHOL 15 ML BOTTLE EACHEYE PRN (14:00)
[2022-07-25] MEDS ORDERED: PIPERACILLIN /TAZOBACTAM 2.25 G in IV D5W 50 ML IV SCH (15:00)
[2022-07-25] MEDS ORDERED: VANCOMYCIN 1.25 GM in IV D5W 250 ML IV ONE ×2 (16:00→22:00)
--- NOTE | 2022-07-25 16:35 | NUR ---
PT IS SLEEPING, VITAL SIGNS ARE WNL.
[2022-07-25] MEDS: SENNOSIDES 8.6 MG TABLET PO SCH (17:00)
[2022-07-25] MEDS: BLOOD SUGAR DIAGNOSTIC 1 EACH STRIP IN SCH ×2 (17:30→22:00)
--- NOTE | 2022-07-25 17:46 | NUR ---
GOT BED 314-2.
--- NOTE | 2022-07-25 18:38 | NUR ---
PT REPORT GIVEN TO LIANG ECKERT
[2022-07-25] MEDS ORDERED: FERROUS SULFATE (325 MG) 325 MG/TAB TABLET ONE (18:41)
[2022-07-25] MEDS: FERROUS SULFATE (325 MG) 325 MG/TAB TABLET PO SCH (18:42)
[2022-07-25 19:27] VITALS: BP 148/98
--- NOTE | 2022-07-25 19:27 | NUR ---
TAKED TO 314 IN STABLE CONDITION
--- NOTE | 2022-07-25 19:45 | NUR ---
ADMISSION NOTES PT ARRIVED VIA [facility] @ 1945. AOx4, ABLE TO MAKE NEEDS KNOWN. ON RA AND TOLERATING WELL. NO SOB NOTED. NO S/SX OF RESPIRATORY DISTRESS NOTED. IV ACCESS IN L WRIST #20G. IV IS INTACT, PATENT, AND FLUSHING WELL. WOUND PICTURES TAKEN. SAFETY PRECAUTIONS IN PLACE: BED IN LOWEST, LOCKED POSITION, SIDERAILS UPx2, AND BRAKES ON. TABLE AND CALL LIGHT WITHIN REACH. ALL NEEDS MET AT THIS TIME.
[2022-07-25 20:00] VITALS: BP 148/98
[2022-07-25] MEDS: INSULIN GLARGINE, 100 UNIT/ML CARTRIDGE SQ SCH (22:00)
[2022-07-25] MEDS: MIRTAZAPINE 45 MG TABLET PO SCH ×2 (22:00→22:13)
[2022-07-25] MEDS: EPOETIN ALFA (10,000 UNIT) 10,000 UNIT/ML VIAL SQ SCH (22:00)
[2022-07-25] MEDS: GABAPENTIN 300 MG CAPSULE PO SCH ×2 (22:00→22:13)
[2022-07-25] MEDS: PIPERACILLIN /TAZOBACTAM 2.25 G in IV D5W 50 ML IV SCH (22:11)
[2022-07-25] MEDS: CARVEDILOL 12.5 MG TABLET PO SCH (22:14)
[2022-07-25] MEDS: APIXABAN 5 MG TABLET PO SCH (22:18)
[2022-07-26] MEDS: PIPERACILLIN /TAZOBACTAM 2.25 G in IV D5W 50 ML IV SCH ×4 (04:49→21:00)
[2022-07-26 05:27] VITALS: BP 147/106
[2022-07-26 06:27] LABS: BASOPHILS % (AUTO) 0.3 % (0.0-2.0); EOSINOPHILS % (AUTO) 2.3 % (0.0-6.0); HEMATOCRIT 25 % (39-51); LYMPHOCYTES # (AUTO) 2.9 K/uL (0.8-4.8); MEAN CORPUSCULAR HGB CONC 31 g/dl (31.0-36.0); MEAN CORPUSCULAR VOLUME 85 fL (80-96); MONOCYTES # (AUTO) 1.1 K/uL (0.1-1.30); NEUTROPHILS # (AUTO) 9.5 K/uL (1.8-8.9); NEUTROPHILS % (AUTO) 68.4 % (43.0-81.0); PLATELET COUNT (AUTO) 459 K/uL (150-450); RED BLOOD CELL COUNT(AUTO) 2.99 MIL/uL (4.5-6.0); WHITE BLOOD COUNT (AUTO) 13.8 K/uL (4.3-11.0)
[2022-07-26 06:35] LABS: CALCIUM, SERUM 7.3 mg/dL (8.5-10.1); POTASSIUM 3.7 mmol/L (3.5-5.1)
[2022-07-26 06:40] LABS: PHOSPHORUS 8.3 mg/dL (2.5-4.9)
--- NOTE | 2022-07-26 06:42 | NUR ---
RN NOTES RECEIVED CRITICAL LAB FOR PHOSPHOROUS OF 8.3. ARAVIND ANDRADE MADE AWARE
--- NOTE | 2022-07-26 06:47 | NUR ---
RN CLOSING NOTES PT IN BED, AWAKE, RECEIVING DIALYSIS. AOx4, ABLE TO MAKE NEEDS KNOWN. ON RA AND TOLERATING WELL. NO SOB NOTED. NO S/SX OF RESPIRATORY DISTRESS NOTED. IV ACCESS IN L WRIST #20G. IV IS INTACT, PATENT, AND FLUSHING WELL. WOUND PICTURES TAKEN. ALL ORDERS CARRIED OUT. ALL NEEDS MET. PT KEPT CLEAN AND DRY. SAFETY PRECAUTIONS IN PLACE: BED IN LOWEST, LOCKED POSITION, SIDERAILS UPx2, AND BRAKES ON. TABLE AND CALL LIGHT WITHIN REACH. WILL ENDORSE TO ONCOMING SHIFT FOR BRYN.
[2022-07-26 06:54] LABS: THYROID STIMULATING HORMONE 2.114 uIU/mL (0.358-3.74)
[2022-07-26] MEDS: BLOOD SUGAR DIAGNOSTIC 1 EACH STRIP IN SCH ×4 (07:30→22:00)
--- NOTE | 2022-07-26 07:40 | NUR ---
RN OPENING NOTE PT IN BED, AWAKE. AOx4, ABLE TO MAKE NEEDS KNOWN. ON RA, BREATHING EVEN AND NON LABORED. NO SOB NOTED. NO S/SX OF RESPIRATORY DISTRESS NOTED. IV ACCESS IN L WRIST #20G. IV IS INTACT, PATENT, AND FLUSHING WELL. ALL NEEDS MET. PATIENT HAS HAD DIALYSIS AND 2L IS OUT. SAFETY PRECAUTIONS IN PLACE: BED IN LOWEST, LOCKED POSITION, SIDE RAILS UPx2, AND BRAKES ON. TABLE AND CALL LIGHT WITHIN REACH. WILL CONTINUE TO MONITOR.
[2022-07-26] MEDS: VIT B CMPLX 3/FA/VIT C/BIOTIN 1 TAB TABLET PO SCH ×2 (08:37→09:00)
[2022-07-26] MEDS: POLYETHYLENE GLYCOL 3350 17 GM POWD.PACK PO SCH ×2 (08:37→09:00)
[2022-07-26] MEDS: PANTOPRAZOLE 40 MG TABLET.DR PO SCH (08:38)
[2022-07-26] MEDS: ASPIRIN 81 MG TAB.CHEW PO SCH ×2 (08:41→09:00)
[2022-07-26] MEDS: SENNOSIDES 8.6 MG TABLET PO SCH ×4 (08:41→16:55)
[2022-07-26] MEDS: DOCUSATE SODIUM 250 MG CAPSULE PO SCH ×2 (08:41→09:00)
[2022-07-26] MEDS: VENLAFAXINE XR 150 MG CAP.SR.24H PO SCH ×2 (08:41→09:00)
[2022-07-26] MEDS: FERROUS SULFATE (325 MG) 325 MG/TAB TABLET PO SCH ×4 (08:41→16:55)
[2022-07-26] MEDS: BUPROPION XL 150 MG TAB.ER.24 PO SCH ×2 (08:41→09:00)
[2022-07-26] MEDS: APIXABAN 5 MG TABLET PO SCH ×3 (08:42→16:55)
--- NOTE | 2022-07-26 08:53 | NUR ---
WOUND CARE CONSULT: PT REFUSED SKIN ASSESSMENT/WOUND CONSULT. 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 RECOMMENDATIONS MADE FOR WOUND CARE AND SKIN PROTECTION. DISCUSSED WITH NURSING STAFF. DR JOSELITO WALSH AND DR RUSSELL CALLED FOR SURGICAL AND DPM CONSULTS. PT IS ON PRATTS ISOFLEX LOW AIRLOSS BED. MD IN AGREEMENT WITH PLAN OF CARE.
[2022-07-26] MEDS ORDERED: Medication Not On Formulary EA (Dolutegravir Sodium (Tivicay) 50 MG) PO SCH (09:00)
[2022-07-26] MEDS: DAKINS QUARTER STRENGTH (0.125%) 480 ML BOTTLE TOP SCH (09:00)
[2022-07-26] MEDS: LOSARTAN POTASSIUM 50 MG TABLET PO SCH (09:00)
[2022-07-26] MEDS ORDERED: Medication Not On Formulary EA (Emtricitabine/Tenofov Alafenam (Descovy 200-25 mg Tablet PO SCH (09:00)
[2022-07-26] MEDS: CARVEDILOL 12.5 MG TABLET PO SCH ×2 (09:00→16:55)
[2022-07-26] MEDS ORDERED: NICARDIPINE 30 MG PO SCH (09:00)
--- NOTE | 2022-07-26 09:30 | NUR ---
RN NOTE PT REFUSED ALL HIS MORNING MEDS AND WOUND CARE. EXPLAINED RISKS AND BENEFITS OF THE MEDICATIONS. REFUSED AGAIN. WILL CONTINUE TO MONITOR.
[2022-07-26] MEDS ORDERED: VANCOMYCIN 500 MG in IV D5W 100 ML IV PRN (14:00)
[2022-07-26] MEDS: AMLODIPINE BESYLATE 10 MG TABLET PO SCH (15:00)
--- NOTE | 2022-07-26 15:15 | NUR ---
RN NOTE PATIENT REFUSING TAKING VITAL SIGNS AND REFUSING TAKING HIS MEDS. EDUCATED HIM ON THE IMPORTANCE, RISKS AND BENEFITS. STILL REFUSING AND STATING TODAY I AM NOT GOING TO TAKE MY MEDS. WILL CONTINUE TO MONITOR.
--- NOTE | 2022-07-26 18:40 | NUR ---
RN CLOSING NOTE PT AWAKE IN BED. AOx4, ABLE TO MAKE NEEDS KNOWN. ON RA AND TOLERATING WELL. NO SOB NOTED. NO S/S OF RESPIRATORY DISTRESS NOTED. IV ACCESS IN L WRIST #20G. IV IS INTACT, PATENT, AND FLUSHING WELL. PT IS NON COMPLIANT, REFUSED ALL PO MEDS AND WOUND CARE. ANTIBIOTICS GIVEN TO THE PATIENT. ALL NEEDS MET. PT KEPT CLEAN AND DRY AND REPOSITIONED PATIENT Q2H. SAFETY PRECAUTIONS IN PLACE: BED IN LOWEST, LOCKED POSITION, SIDE RAILS UPx2, AND BRAKES ON. TABLE AND CALL LIGHT WITHIN REACH. WILL ENDORSE TO ONCOMING SHIFT FOR BRYN.
[2022-07-26 20:00] VITALS: BP 198/100
--- NOTE | 2022-07-26 20:02 | NUR ---
RUG HOOKER INITIAL NOTES RECEIVED PT IN BED AWAKE AND ALERT , DENIES ANY PAIN OR ANY DISCOMFORT , SKIN WARM TO TOUCH. HEPLOCK ON HIS LEFT WRIST 20G PATENT AND INTACT. RESPIRATION EVEN AND NON-LABORED. SPOKE TO HIM REGARDING HIS MEDICATION TONIGHT AND HE STATED "HE DOESN'T NEEDS ANY MEDICATION "EVEN I TOLD HIM THE BENEFITS OF HIS MEDICATION. I ALSO MENTION REGARDING THE BLOOD SUGAR CHECK AT 22:00 THEN HE SAID "I DON'T NEED ANY BLOOD SUGAR CHECK, BUT HE'S OK WITH HIS ANTIBIOTIC . KEPT HIM WARM AND COMFORTABLE AT ALL TIMES. LEAVE THE CALL LIGHT AT HIS HANDS AND ENCOURAGE HIM TO USE IF HE NEEDS SOME HELP OR NEEDS THE NURSE. WILL CONTINUE MONITORING.
--- NOTE | 2022-07-26 21:00 | NUR ---
pot builder notes pt awake and alert and now refusing to infused his antibiotic even we mentioned to him why he needs it. He also refused his medication for his Blood pressure even I told him the benefits of it. he knew that his BP 198/100. He stated he doesn't need medication . No signs of any acute distress noted. will continue monitoring.
[2022-07-26] MEDS: GABAPENTIN 300 MG CAPSULE PO SCH (22:00)
[2022-07-26] MEDS: MIRTAZAPINE 45 MG TABLET PO SCH (22:00)
[2022-07-26] MEDS: INSULIN GLARGINE, 100 UNIT/ML CARTRIDGE SQ SCH (22:00)
[2022-07-26] MEDS: CLONIDINE HCL 0.1 MG TABLET PO PRN ×2 (22:04→23:25)
--- NOTE | 2022-07-26 23:26 | NUR ---
neuroscientist notes checked pt and he's awake , night care rendered with wound care too. noticed pt calmed so I spoke to him regarding his Blood pressure BP 197/111. and he needs to take the BP med so it controlled to getting higher and to prevent him to have another problem , pt understood well and he agreed at this time but he still refusing to check his blood sugar. Kept him warm and comfortable at all times. will continue to monitor.
[2022-07-26] MEDS ORDERED: hydrALAZINE HCL IV 20 MG VIAL IV PRN (23:30)
[2022-07-27] MEDS: PIPERACILLIN /TAZOBACTAM 2.25 G in IV D5W 50 ML IV SCH ×3 (05:00→21:00)
--- NOTE | 2022-07-27 05:23 | NUR ---
sales marketing notes pt sleeping comfortably in bed without any discomfort or any distress noted. kept him warm and comfortable at all times. will continue monitoring. place call light at reach.
[2022-07-27] MEDS ORDERED: hydrALAZINE HCL IV 20 MG VIAL IV ONE (06:30)
--- NOTE | 2022-07-27 06:44 | NUR ---
customer marketing assistant notes BP checked 194/120, heart rate 87. patient denies any pain or any discomfort. Hydralazine 10mg IVP administered michelle IVP by RN as ordered. Morning care rendered and wound care also done. kept him warm and comfortable at all times. He still refused the Zosyn IVPB . he stated he only needs dialysis . will endorse to am nurse for continuity of care.
[2022-07-27 07:15] LABS: BILIRUBIN,URINE NEGATIVE (NEGATIVE); COLOR,URINE YELLOW (YELLOW); LEUKOCYTE ESTERASE ,URINE 2+ (NEGATIVE); NITRITE, URINE NEGATIVE (NEGATIVE); PH,URINE 6.5 (5.0-8.0); PROTEIN,URINE 2+ mg/dl (NEGATIVE); UGLUCOSE TRACE mg/dL (NEGATIVE); UROBILINOGEN,URINE 0.2 EU/dL (0.2)
[2022-07-27] MEDS: BLOOD SUGAR DIAGNOSTIC 1 EACH STRIP IN SCH ×4 (07:30→22:00)
[2022-07-27] MEDS: PANTOPRAZOLE 40 MG TABLET.DR PO SCH (07:30)
--- NOTE | 2022-07-27 07:30 | NUR ---
RN OPENING NOTE PT AWAKE IN BED. AOx4, ABLE TO MAKE NEEDS KNOWN. ON RA AND TOLERATING WELL. NO SOB NOTED. NO S/S OF RESPIRATORY DISTRESS NOTED. IV ACCESS IN L WRIST #20G. IV IS INTACT, PATENT, AND FLUSHING WELL. NO C/O OF PAIN AND DISCOMFORT AT THIS TIME. SAFETY PRECAUTIONS IN PLACE: BED IN LOWEST, LOCKED POSITION, SIDE RAILS UPx2, AND BRAKES ON. TABLE AND CALL LIGHT WITHIN REACH. WILL CONTINUE TO MONITOR.
[2022-07-27 08:00] VITALS: BP 189/117
[2022-07-27 08:04] LABS: BACTERIA,URINE Few /HPF (None Seen); SQUAMOUS EPITHELIAL CELL,UR Few /HPF (None Seen)
[2022-07-27] MEDS: AMLODIPINE BESYLATE 10 MG TABLET PO SCH (08:30)
[2022-07-27] MEDS: LOSARTAN POTASSIUM 50 MG TABLET PO SCH (08:31)
[2022-07-27] MEDS: CARVEDILOL 12.5 MG TABLET PO SCH ×2 (08:32→17:00)
[2022-07-27] MEDS: DOCUSATE SODIUM 250 MG CAPSULE PO SCH (09:00)
[2022-07-27] MEDS: DAKINS QUARTER STRENGTH (0.125%) 480 ML BOTTLE TOP SCH (09:00)
[2022-07-27] MEDS: BUPROPION XL 150 MG TAB.ER.24 PO SCH (09:00)
[2022-07-27] MEDS: VENLAFAXINE XR 150 MG CAP.SR.24H PO SCH (09:00)
[2022-07-27] MEDS: APIXABAN 5 MG TABLET PO SCH ×2 (09:00→17:00)
[2022-07-27] MEDS: FERROUS SULFATE (325 MG) 325 MG/TAB TABLET PO SCH ×3 (09:00→17:00)
[2022-07-27] MEDS: SENNOSIDES 8.6 MG TABLET PO SCH ×3 (09:00→17:00)
[2022-07-27] MEDS: VIT B CMPLX 3/FA/VIT C/BIOTIN 1 TAB TABLET PO SCH (09:00)
[2022-07-27] MEDS: THERAHONEY GEL 1.5 OZ TUBE TP SCH (09:00)
[2022-07-27] MEDS: POLYETHYLENE GLYCOL 3350 17 GM POWD.PACK PO SCH (09:00)
[2022-07-27] MEDS: ASPIRIN 81 MG TAB.CHEW PO SCH (09:00)
--- NOTE | 2022-07-27 12:36 | NUR ---
PATIENT REFUSED MEDICATIONS AND AND ALL OTHER TREATMENT MEASURES, MD AWARE. WILL APPROACHED AND ENCOURAGED PATIENT AGAIN.
[2022-07-27] MEDS: EPOETIN ALFA (10,000 UNIT) 10,000 UNIT/ML VIAL SQ SCH (14:50)
[2022-07-27] MEDS ORDERED: NEPRO VAN 237 ML CAN PO PRN (15:00)
--- NOTE | 2022-07-27 18:00 | NUR ---
RN CLOSING NOTE PT AWAKE IN BED. AOx4, ABLE TO MAKE NEEDS KNOWN. ON RA AND TOLERATING WELL. NO SOB NOTED. NO S/S OF RESPIRATORY DISTRESS NOTED. IV ACCESS IN L WRIST #20G. IV IS INTACT, PATENT, AND FLUSHING WELL. PT IS NON COMPLIANT, REFUSED ALL PO MEDS AND SOME THERAPEUTIC INTERVENTIONS. WOUND CARE DONE. ANTIBIOTICS GIVEN TO THE PATIENT. ALL NEEDS MET. PT KEPT CLEAN AND DRY AND REPOSITIONED PATIENT Q2H. SAFETY PRECAUTIONS IN PLACE: BED IN LOWEST, LOCKED POSITION, SIDE RAILS UPx2, AND BRAKES ON. TABLE AND CALL LIGHT WITHIN REACH. WILL ENDORSE TO ONCOMING SHIFT FOR BRYN.
--- NOTE | 2022-07-27 19:30 | NUR ---
MS HEAVY MACHINERY OPERATOR INITIAL NOTES Received report from am nurse and seen pt in bed resting at this time with eyes closed , respiration even and non-labored, Skin warm to touch, not in any acute distress noted. He still with calix to gravity with clear yellow output noted. Bed in low and lock in position with side rails x2 up. call light at his hand. will continue monitoring.
[2022-07-27 20:00] VITALS: BP 142/94
[2022-07-27] MEDS: GABAPENTIN 300 MG CAPSULE PO SCH (22:00)
[2022-07-27] MEDS: INSULIN GLARGINE, 100 UNIT/ML CARTRIDGE SQ SCH (22:00)
[2022-07-27] MEDS: MIRTAZAPINE 45 MG TABLET PO SCH (22:00)
--- NOTE | 2022-07-28 02:37 | NUR ---
ms kar notes seen pt resting not in any acute distress noted. kept him warm and comfortable at all times. will continue monitoring. place call light at reach.
[2022-07-28 05:00] VITALS: BP 90/64
[2022-07-28] MEDS: PIPERACILLIN /TAZOBACTAM 2.25 G in IV D5W 50 ML IV SCH ×2 (05:00→13:08)
--- NOTE | 2022-07-28 06:50 | NUR ---
MS TRUCK HEADLIGHT ASSEMBLER CLOSING NOTES PT BACK TO SLEEP AFTER SPONGES BATH AND WOUND CARE TREATMENT. HE STILL REFUSED TO ALL HIS MEDS SINCE LAST NIGHT EVEN BLOOD SUGAR CHECKED. NO SIGNS OF ANY ACUTE DISTRESS NOTED. HE STILL NEEDS ENCOURAGEMENT AND MOTIVATION . KEPT HIM WARM AND COMFORTABLE AT ALL TIMES. REPOSITION FOR COMFORT. PLACE CALL LIGHT AT REACH. WILL ENDORSE TO AM NURSE FOR CONTINUITY OF CARE.
[2022-07-28] MEDS: BLOOD SUGAR DIAGNOSTIC 1 EACH STRIP IN SCH ×4 (07:30→22:00)
[2022-07-28] MEDS: PANTOPRAZOLE 40 MG TABLET.DR PO SCH (08:36)
[2022-07-28] MEDS: CARVEDILOL 12.5 MG TABLET PO SCH ×3 (09:00→21:35)
[2022-07-28] MEDS: VENLAFAXINE XR 150 MG CAP.SR.24H PO SCH (09:00)
[2022-07-28] MEDS: VIT B CMPLX 3/FA/VIT C/BIOTIN 1 TAB TABLET PO SCH (09:00)
[2022-07-28] MEDS: AMLODIPINE BESYLATE 10 MG TABLET PO SCH (09:00)
[2022-07-28] MEDS: LOSARTAN POTASSIUM 50 MG TABLET PO SCH ×2 (09:00→23:16)
[2022-07-28] MEDS: ASPIRIN 81 MG TAB.CHEW PO SCH ×2 (11:23→11:32)
[2022-07-28] MEDS: APIXABAN 5 MG TABLET PO SCH ×2 (11:24→17:00)
[2022-07-28] MEDS: FERROUS SULFATE (325 MG) 325 MG/TAB TABLET PO SCH ×3 (11:31→17:00)
[2022-07-28] MEDS: BUPROPION XL 150 MG TAB.ER.24 PO SCH (11:31)
[2022-07-28] MEDS: DOCUSATE SODIUM 250 MG CAPSULE PO SCH (11:32)
[2022-07-28] MEDS: POLYETHYLENE GLYCOL 3350 17 GM POWD.PACK PO SCH (11:36)
[2022-07-28] MEDS: SENNOSIDES 8.6 MG TABLET PO SCH ×3 (11:36→17:00)
[2022-07-28] MEDS: THERAHONEY GEL 1.5 OZ TUBE TP SCH (11:37)
[2022-07-28] MEDS: DAKINS QUARTER STRENGTH (0.125%) 480 ML BOTTLE TOP SCH (11:37)
[2022-07-28] MEDS ORDERED: TOBR60PI2 IV (12:33)
[2022-07-28] MEDS: GENTAMICIN 120 MG in IV D5W 100 ML IV ONE ×2 (19:00→22:11)
[2022-07-28 20:00] VITALS: BP 160/109
--- NOTE | 2022-07-28 20:25 | NUR ---
delivery driver/supervisor here to transfer pt to [facility] patient's B/P 174/118 (unable to transport to the facility with the elevated B/P (report given he refused his B/P medication today) He allowed me to give Apresoline 10 mg IV at this time (noted his IV in the left wrist He stated was hurting, offered to start a new site, he adamantly refused the IV to be started (He stated he wanted a midline and the Doctors never ordered for one,no I don't want you to put an IV in me) The left wrist S/L is working medication given slow 20:30 B/P 179/116 HR 96 21:00 B/P 184/117 ambulance drivers unable to wait any longer for the B/P to go lower 21:30 MD Wilson made aware of patient's B/P being elevated and that I was going to give him his AM B/P meds and he was willing to take them Coreg 25 mg and Cozaar 100mg . 23:00 B/P 160/109 HR98
[2022-07-28 20:30] VITALS: BP 179/116
--- NOTE | 2022-07-28 20:30 | NUR ---
noted order to remove calix and replace and then get a urine culture when patient approached and I explained to him that I would remove the present catheter and replace with a new and then obtain a culture he adamantly refused stating "I just want to leave, I want nothing more done." I just came for HD and now everything is being done, NO MORE!
[2022-07-28 21:00] VITALS: BP 184/117
[2022-07-28] MEDS: MIRTAZAPINE 45 MG TABLET PO SCH (22:00)
[2022-07-28] MEDS: INSULIN GLARGINE, 100 UNIT/ML CARTRIDGE SQ SCH (22:00)
[2022-07-28] MEDS: GABAPENTIN 300 MG CAPSULE PO SCH (22:00)
[2022-07-28 23:00] VITALS: BP 160/109
[2022-07-29] MEDS: BLOOD SUGAR DIAGNOSTIC 1 EACH STRIP IN SCH (06:37)
[2022-07-29] MEDS: PANTOPRAZOLE 40 MG TABLET.DR PO SCH (07:30)
[2022-07-29 08:00] VITALS: BP 180/111
--- NOTE | 2022-07-29 08:14 | NUR ---
RN OPENING NOTE RECEIVED PATIENT IN BED, AO X 4. ABLE TO RESPONDS PHYSICAL STIMULI. RESPIRATORY EVEN AND UNLABORED IN ROOM AIR. IN NO ACUTE DISTRESS OBSERVED. SKIN IS WARM TO TOUCH, KEEP CLEAN/DRY. KEPT ELEVATED HOB FOR ASPIRATION PRECAUTION/ENSURE AIRWAY, AND LOWEST BED POSITIONED. BED ALARM IS ON AT ALL THE TIME FOR SAFETY. PATIENT IS HAVING BED SIDE HD, AND STABLE CONDITION/. CALL LIGHT WITHIN REACH, WILL CONTINUE TO MONITOR
[2022-07-29 08:41] LABS: BASOPHILS % (AUTO) 0.2 % (0.0-2.0); EOSINOPHILS % (AUTO) 1.8 % (0.0-6.0); HEMATOCRIT 28 % (39-51); HEMOGLOBIN 8.9 g/dL (13.5-17.5); LYMPHOCYTES # (AUTO) 2.8 K/uL (0.8-4.8); LYMPHOCYTES % (AUTO) 25.2 % (20.0-44.0); MEAN CORPUSCULAR HGB CONC 32 g/dl (31.0-36.0); MEAN CORPUSCULAR VOLUME 84 fL (80-96); MONOCYTES # (AUTO) 0.7 K/uL (0.1-1.30); MONOCYTES % (AUTO) 6.2 % (2.0-12.0); NEUTROPHILS # (AUTO) 7.5 K/uL (1.8-8.9); NEUTROPHILS % (AUTO) 66.6 % (43.0-81.0); PLATELET COUNT (AUTO) 463 K/uL (150-450); RED BLOOD CELL COUNT(AUTO) 3.34 MIL/uL (4.5-6.0); WHITE BLOOD COUNT (AUTO) 11.3 K/uL (4.3-11.0)
[2022-07-29 08:53] LABS: CALCIUM, SERUM 7.2 mg/dL (8.5-10.1); CREATININE 3.8 mg/dL (0.6-1.3); MAGNESIUM 1.8 mg/dL (1.8-2.4); PHOSPHORUS 4.3 mg/dL (2.5-4.9)
[2022-07-29] MEDS: APIXABAN 5 MG TABLET PO SCH (09:00)
[2022-07-29] MEDS: SENNOSIDES 8.6 MG TABLET PO SCH (09:00)
[2022-07-29] MEDS: DOCUSATE SODIUM 250 MG CAPSULE PO SCH (09:00)
[2022-07-29] MEDS: AMLODIPINE BESYLATE 10 MG TABLET PO SCH (09:00)
[2022-07-29] MEDS: POLYETHYLENE GLYCOL 3350 17 GM POWD.PACK PO SCH (09:00)
[2022-07-29] MEDS: BUPROPION XL 150 MG TAB.ER.24 PO SCH (09:00)
[2022-07-29] MEDS: DAKINS QUARTER STRENGTH (0.125%) 480 ML BOTTLE TOP SCH (09:00)
[2022-07-29] MEDS: VENLAFAXINE XR 150 MG CAP.SR.24H PO SCH (09:00)
[2022-07-29] MEDS: THERAHONEY GEL 1.5 OZ TUBE TP SCH (09:00)
[2022-07-29] MEDS: FERROUS SULFATE (325 MG) 325 MG/TAB TABLET PO SCH (09:00)
[2022-07-29] MEDS: VIT B CMPLX 3/FA/VIT C/BIOTIN 1 TAB TABLET PO SCH (09:00)
--- NOTE | 2022-07-29 09:27 | NUR ---
PATIENT REFUSED ALL MEDICATIONS AND WOUND TREATMENT THIS MORNING.
--- NOTE | 2022-07-29 09:42 | NUR ---
NOTICED POTASSIUM LEVEL IS 3.0, PATIENT REFUSED ALL MEDICATIONS, LAB, WOUND TREATMENT AND PREVIOUS HD X 2. MD AWARE OD THE ABOVE ISSUES.
[2022-07-29] MEDS ORDERED: GENTAMICIN 80 MG in IV D5W 50 ML IV PRN (10:30)
--- NOTE | 2022-07-29 11:36 | NUR ---
PATIENT D/C TO [facility], GIVEN REPORT SPENCER/RN. ALSO GIVEN REPORT AMBULANCE/2EMTs. PATIENT BP-135/95, HR-87, DENIES DISTRESS. PATIENT REFUSED TO TAKE WOUND PICTURES.
== END 2022-07-29 11:15 | DRG 380 ==
LOC: ER 11:22 → TRANSITION 14:30 → TELE 18:29 → MED 07-27
PROVIDERS: ADMIT Nurse Practitioner Acute Care; ATTEND Nurse Practitioner Acute Care
PROC: 5A1D70Z Performance of Urinary Filtration, Intermittent, Less than 6 Hours Per Day (ICD-10-PCS; principal; 2022-07-26)
DX: E11.69 Type 2 diabetes mellitus with other specified complication (principal); L89.154 Pressure ulcer of sacral region, stage 4; G61.0 Guillain-Barre syndrome; I12.0 Hypertensive chronic kidney disease with stage 5 chronic kidney disease or end stage renal disease; D68.59 Other primary thrombophilia; R53.2 Functional quadriplegia; E11.621 Type 2 diabetes mellitus with foot ulcer; D63.8 Anemia in other chronic diseases classified elsewhere; N18.6 End stage renal disease; M46.28 Osteomyelitis of vertebra, sacral and sacrococcygeal region; L97.419 Non-pressure chronic ulcer of right heel and midfoot with unspecified severity; E11.22 Type 2 diabetes mellitus with diabetic chronic kidney disease; L97.429 Non-pressure chronic ulcer of left heel and midfoot with unspecified severity; Z99.2 Dependence on renal dialysis; Z20.822 Contact with and (suspected) exposure to COVID-19; Z86.73 Personal history of transient ischemic attack (TIA), and cerebral infarction without residual deficits; K21.9 Gastro-esophageal reflux disease without esophagitis; E11.42 Type 2 diabetes mellitus with diabetic polyneuropathy; E11.622 Type 2 diabetes mellitus with other skin ulcer; H54.7 Unspecified visual loss; Z79.82 Long term (current) use of aspirin; Z79.01 Long term (current) use of anticoagulants; Z79.4 Long term (current) use of insulin; Z79.899 Other long term (current) drug therapy; M89.8X9 Other specified disorders of bone, unspecified site; Z74.01 Bed confinement status; Z87.440 Personal history of urinary (tract) infections; Z91.15 Patient's noncompliance with renal dialysis; Z91.199 Patient's noncompliance with other medical treatment and regimen due to unspecified reason; N39.0 Urinary tract infection, site not specified
CPT/HCPCS: 36415; 71045-TC; 73650-TC; 80048-TC; 80061-TC; 80170-TC; 80202-TC; 81001; 83540-TC; 83735-TC; 84100-TC; 84443-TC; 85025-TC; 86704; 86705; 86706; 86803; 87040-TC; 87081-TC; 87086-TC; 87340; 87806; 90935-TC; A6253; A6403; C9803; G0378; J0360; J0885; J1580; J1815; J2405; J2543; J3370; J7030; J7050; J7060